=== PATIENT | female | born 1955 | race Caucasian/White ===

== ENCOUNTER 2019-11-01 18:35 | Emergency (ER) | payer MEDICAID, SELFPAY ==
--- NOTE | 2019-11-01 18:39 | W.ED.GENAD ---
Discharge Plan Disposition Patient Disposition: HOME Condition: Stable Discharge Details Chief Complaint: FlankPain Clinical Impression: Fever, UTI (urinary tract infection), Cancer, Bladder mass, Anemia, Lung nodule Primary Care Provider: Mikayla,Local ED Provider: Nile Mena Home Meds and New Rx's Prescriptions: New cephalexin [Keflex] 500 mg capsule 500 mg PO QID 7 Days Qty: 28 RF: 0 No Action buprenorphine HCl 2 mg Tablet, Sublingual 3 mg SUBLINGUAL DAILY RF: 0 Discharge Instructions Instructions: Urinary Tract Infection in Women (ED), Bladder Cancer (DC) Additional Instructions: At this time there is a notable mass on your bladder, which is likely the source of your bleeding, infection, and weight loss. There is significant concern that this is a malignancy. Per your request and wishes we will be discharging you home, please take the antibiotic as directed, 500 mg of Keflex(which is 1 pill) every 6 hours. Do this for the completion of the prescription. Please contact Dr. Vazquez's office for follow-up this week for this bladder cancer. Please drink plenty of fluids, take Tylenol and Motrin as needed for fever. If you notice any worsening of your symptoms, or any new symptoms such as vomiting, diarrhea, fever, chills, shortness of breath, chest pain, numbness, weakness, or fainting , please return immediately to the emergency department for reevaluation. Please follow up with your primary care provider as soon as possible for reassessment and reevaluation. As always, it was a pleasure participating in your medical care today. Referrals: Jayce Vazquez MD [ [facility] STAFF PHYSICIAN] - Discharge Data Discharge Date/Time-TO BE ENTERED AT DEPARTURE: 11/01/19 22:40 Medical Decision Making <Leyla Winters DO - Last Filed: 11/02/19 08:59> 1850 --64-year-old female with history of frequent UTI, tobacco smoking, multiple abdominal surgeries complicated with SBO and prior colostomy with reversal 10 years ago presents with fever, UTI symptoms and left flank and left lower quadrant abdominal pain for the past 3 weeks. Report of recent 10 pound weight loss. She appears cachectic. Heart rate tachycardic. She is moderately anxious. She is afebrile. She has left lower quadrant suprapubic tenderness. Suspect pyelonephritis but also need to consider possible neoplasm considering weight loss and cachexia. Will place an IV, bolus IV fluids, IV Tylenol, screening labs, urinalysis and CT abdomen and pelvis. 1944 --labs reviewed. Hemoglobin 8.5. Urinalysis notes UTI. Will give a dose of IV Rocephin. 1999 --case endorsed to Dr. Mena to follow-up on labs and imaging. Medical Records Medical records reviewed: Yes I reviewed the patient's medical records. <Nile Mena, DO - Last Filed: 11/01/19 22:57> The case was signed out to me by my colleague Dr. Leyla Winters. Please refer to her documentation, physical exam, HPI and assessment and plan. Patient was signed out pending CT scans and reassessment. Laboratory work-up demonstrates evidence of mild anemia, which appears to be more acute, initially the patient denied any blood anywhere, she now admits that she has been seeing some blood in her urine occasionally once every third day. No white count, however the patient does have notable evidence of pyelonephritis. Renal function stable. Troponin normal, CT scan results have returned and demonstrates evidence of a 7 mm nodule in the lungs, there is also a notable soft tissue mass in the left anterior urinary bladder with moderate left hydronephrosis with mural thickening of the left renal pelvis and ureter could be related to neoplasm. I suspect that the suspected bladder cancer is causing notable retention subsequent infection. Patient was given a gram of Rocephin here in the ED by Dr. Winters. I discussed the imaging, infection, and clinical disposition with Dr. Vazquez, he agrees on the need for prompt follow-up. I did discuss all these findings with the patient, we had a long and thorough discussion together, patient understands the severity of her current illness. She states that she is feeling much better though at this time after the antibiotics and fluids. I did discuss with the patient admission/observation to the hospital , and at this time through notable discussion, weighing the risks and benefits, utilizing a shared decision making process, and with a very clear discussion on the benefit of admission and the risks associated with discharge including the unlikely but potential worst case scenario of or lifelong disability the patient has refused admission and would like to go home. She states that she does need time to think through this and she feels much better. Patient is of a appropriate age to make decisions. The patient is of sound mind, appears clinically sober, and has capacity to make decisions by my clinical exam. Respecting the patient's wishes, they will be discharged home. I did discuss less ideal options, including return later for admission the patient has made it clear that she will be going home and staying home for the current time but she does assure me that she will return immediately if she has any worsening of her symptoms. We will give a bottle of Keflex here, and a prescription for home use. We will place urology referral for prompt follow-up this week. I have extensively reviewed the treatment plan and discharge instructions with the patient. I have addressed all patient concerns at this time. The patient was made aware of what symptoms to monitor for that would warrant a return to the emergency department. Discussed the plan with the patient, they demonstrate verbal understanding and agreement with our assessment and plan at this time. We will also place a referral for outpatient primary care provider referral. IMPRESSION: 1. No acute finding. 2. 7 mm nodule along the right anterior minor fissure. As per Fleischner Society 2017 guidelines for follow-up and management of pulmonary nodules: For patients at low risk (minimal or absent history of smoking and of other known risk factors), recommend CT at 6-12 months, then consider CT at 18- 24 months. For patient at high risk (history of smoking or of other known risk factors), recommend CT at 6-12 months, then CT at 18-24 months. IMPRESSION: 1. Soft tissue mass of the left anterior urinary bladder with moderate left hydronephrosis and with mural thickening of the left renal pelvis and ureter that could also be related to neoplasm. 2. Mild fecal retention. 3. Borderline prominence of the biliary ducts, correlate with patient labs to exclude obstruction with MRCP or ERCP for further evaluation as clinically indicated. Thank you for allowing us to participate in the care of your patient. Dictated and Authenticated by: Adonis Norwood MD 11/01/2019 9:56 PM Eastern Time ([place] & [place]) HPI <Leyla Winters DO - Last Filed: 11/02/19 08:59> General Mode of arrival: ambulatory. Date/Time Provider Initiated Documentation: 11/01/19 18:37. Limitations to Documentation: no limitations. Information obtained by: patient. HPI Narrative: Patient is a 64-year-old female with a history of UTI, hysterectomy, ectopic and bladder surgery complicated with scar tissue resulting in bowel obstruction 10 years ago presents with fever, urinary frequency, dysuria, hematuria, and left flank and left lower quadrant abdominal pain for the past 3 weeks. T-max 101 2 days ago. She also admits to decreased appetite over the past 2 days. She denies any chest pain, shortness of breath, vomiting, diarrhea. She does admit to an approximate 10 pound weight loss over the past few weeks. She denies any recent travel, known sick contacts or h/o COVID testing. Related Data Home Medications Medication Instructions Recorded Confirmed buprenorphine HCl 3 mg SUBLINGUAL DAILY 11/01/19 11/01/19 cephalexin [Keflex] 500 mg PO QID 7 Days #28 cap 11/01/19 Previous Rx's Medication Instructions Recorded cephalexin [Keflex] 500 mg PO QID 7 Days #28 cap 11/01/19 Allergies Allergy/AdvReac Type Severity Reaction Status Date / Time No Known Allergies Allergy Unverified 11/01/19 18:49 Review of Systems <Leyla Winters DO - Last Filed: 11/02/19 08:59> All systems reviewed & are unremarkable except as noted in HPI and below Constitutional Constitutional: Reports as per HPI, Denies chills and Reports fever(s) Eyes Eyes: Denies blurry vision ENT Ears, Nose, Mouth, and Throat: Denies dizziness, Denies sore throat and Denies throat swelling Cardiovascular Cardiovascular: Denies chest pain and Denies dyspnea Respiratory Respiratory: Denies cough and Denies dyspnea Gastrointestinal Gastrointestinal: Reports abdominal pain, Denies diarrhea and Denies vomiting Genitourinary Genitourinary: Denies hematuria and Denies dysuria Musculoskeletal Musculoskeletal: Denies back pain and Denies numbness Integumentary/Breasts Skin/Breast: Denies lesions and Denies rash Neurologic Neurologic: Denies dizziness, Denies localized weakness and Denies numbness Allergic/Immunologic Allergic/Immunologic: Denies throat swelling PFSH <Leyla Winters DO - Last Filed: 11/02/19 08:59> Medical History (Updated 11/01/19 @ 22:56 by Nile Mena DO) Frequent UTI (Acute) Surgical History (Updated 11/01/19 @ 19:37 by Leyla Winters DO) History of bladder surgery (Acute) History of hysterectomy (Chronic) Social History Smoking/Tobacco Use Status: Current every day Tobacco Type: cigarettes Years smoked: 10 Alcohol Intake: never Substance use type: does not use Do you feel safe at home: Yes Do you feel safe in your relationship?: Yes Exam <Leyla Winters DO - Last Filed: 11/02/19 08:59> Const General: cooperative, anxious and ill appearing chronically Nutritional Appearance: cachectic HENMT Head: normal to inspection Face and sinus: normal facial exam Eyes General: appearance normal, both eyes and all related structures EOM: EOM intact bilaterally Neck Neck: normal visual inspection and No submandibular swelling Lymphatic: no lymphadenopathy noted Chest Chest: normal inspection of the chest and no tenderness Resp Effort & Inspection: normal respiratory effort and able to speak in complete sentences Auscultation: clear to auscultation bilaterally Cardio Rate: regular rate Rhythm: regular rhythm GI Inspection: normal to inspection Palpation: soft, not firm, not rigid and tender in the LLQ and suprapubicly Auscultation: hypoactive bowel sounds Back/Spine/Pelvis Back: no CVA tenderness Skin General skin exam: no rashes or lesions noted and other (kaylene complexion) Neuro General: patient alert, patient awake and patient oriented x3 Cognition: normal cognition Speech: speech normal Motor: muscle tone normal throughout Sensory Exam: no sensory deficits noted Extrem General: normal to inspection, full ROM, capillary refill normal, no calf tenderness bilaterally and no edema Psych Appearance: grossly normal Mental Status: mental status grossly normal Speech and Movement: speech and movement normal Affect: normal affect Sign Out <Leyla Winters DO - Last Filed: 11/02/19 08:59> Sign Out Data: Sign Out Comment: follow up on labs and imaging and final disposition. Last updated by Leyla Winters DO at 11/01/19 19:49
[2019-11-01 18:44] VITALS: BP 168/68; PULSE 128; RESP 14; TEMP 36.7; O2SAT 96
[2019-11-01 19:31] LABS: Bilirubin Negative (Negative); Blood Moderate (Negative); Clarity Cloudy (Clear); Glucose Negative (Negative); Ketones Trace mg/dL (Negative); Leukocyte Esterase Large (Negative); Nitrite Positive (Negative); Specific Gravity 1.025 (1.005-1.025); pH 5.5 (5-8)
[2019-11-01 19:39] LABS: Bacteria Many HPF (Negative); C & S Indicated? Yes; Casts Negative LPF (Negative); Crystals Negative HPF (Negative); Epithelial Cells Negative HPF (Negative); Mucus Moderate (Negative); Other Cells Negative (Negative); RBC >50 HPF (0-2); WBC >50 HPF (0-5)
[2019-11-01 19:45] LABS: Abs Immature Grans 0.02 k/cumm (0.0-0.09); Absolute Basophil Count 0.02 k/cumm (0.0-0.2); Absolute Lymphocyte Count 0.91 k/cumm (1.2-3.4); Absolute Neutrophil Count 6.34 k/cumm (1.2-6.7); Basophils % 0.2; HCT 26.9 % (36.0-46.0); HGB 8.5 g/dL (12.0-15.5); Immature Grans % 0.2 %; Lymphocytes % 11.1; Mean Corp. HGB Concentration 31.6 g/dL (32.0-36.0); Mean Corpuscular Hemoglobin 27.5 pg (27.0-33.0); Mean Corpuscular Volume 87.1 fL (80-95); Mean Platelet Volume 8.4 fL (8.0-11.0); Neutrophils % 77.5; Platelet Count 412 x1000/uL (130-400); RBC 3.09 m/cumm (4.00-5.20); RBC Distribution Width 13.2 % (11.7-14.6); White Blood Cell Count 8.19 k/cumm (4.4-10.8)
--- NOTE | 2019-11-01 19:45 | DI.CT_ITS ---
EXAM: CT CHEST/ABD/PEL W CLINICAL HISTORY: LLQ abd/suprapubic pain COMPARISON: No exams were available for comparison FINDINGS: CT examination of the chest, abdomen and pelvis was performed with a bolus infusion of 85 cc of Omnip aque 350. There is severe pulmonary emphysema, most prominent involving the upper lobes. There is no evidence of pulmonary embolic disease. Thoracic aorta is unremarkable with no dissection or aneurysm. No med iastinal or hilar mass or adenopathy. Tracheobronchial tree is unremarkable. No acute consolidation . No pleural effusion or pneumothorax. Incidental fissural nodule noted, no follow necessary. The liver and spleen are grossly unremarkable in appearance. There is are multiple calcified gallsto steve. No significant biliary dilatation. Unremarkable appearance of pancreas. Abdominal aorta is of normal diameter and no major vascular abnormality is seen. No significant abdominal wall hernia see n. Adrenals are unremarkable bilaterally. Right kidney appears normal with no renal mass, hydronephrosi s, or nephrolithiasis. There is marked left hydronephrosis and hydroureter to the level of the ureterovesical junction. The re is a lobulated enhancing bladder wall mass predominantly on the left obstructing the left ureteral orifice. Findings are highly suggestive of neoplasm. No gross pelvic adenopathy seen. No gross lit wel obstruction although there is significant constipation. IMPRESSION: Left urinary bladder soft tissue mass obstructing left ureteral orifice with severe left hydrouretero nephrosis. Highly suspicious for neoplasm.
[2019-11-01] MEDS: Normal Saline 500 ML IV (19:57)
[2019-11-01] MEDS: cefTRIAXone 1 GM/50 ML BAG IVPB (19:58)
[2019-11-01 20:01] LABS: ALT 17 U/L (14-59); AST 17 U/L (15-37); Alkaline Phosphatase 123 U/L (46-116); Anion Gap 11.5 mmol/L (3-11); BUN 12 mg/dL (7-18); Bilirubin, Total 0.5 mg/dL (0.2-1.0); CO2 26.5 mmol/L (21.0-32.0); CREATININE 0.76 mg/dL (0.55-1.02); Calcium 9.1 mg/dL (8.5-10.1); Chloride 97 mmol/L (98-107); Glucose 111 mg/dL (74-106); Potassium 3.7 mmol/L (3.5-5.1); Sodium 135 mmol/L (136-145); Total Protein 7.9 g/dL (6.4-8.2); Troponin I < 0.05 ng/Ml (<0.06)
[2019-11-01 20:34] LABS: Lactate 0.9 mmol/L (0.6-1.4)
[2019-11-01 20:42] VITALS: TEMP 37.3
[2019-11-01] MEDS: ACETAMINOPHEN 1,000 MG/100 ML BTL 400 MG IVPB (20:44)
[2019-11-01] MEDS: Normal Saline - Diluent 50 ML VIAL IV (21:27)
[2019-11-01] MEDS: Omnipaque 350 MG/ML 50 ML BTL PO (21:29)
[2019-11-01] MEDS: Omnipaque 350 MG/ML 100 ML BTL IJ (21:33)
[2019-11-01] MEDS: Breeza Beverage 473 ML BTL PO ×2 (21:38→21:39)
--- NOTE | 2019-11-01 21:56 | DI.VRAD_ITS ---
PROCEDURE INFORMATION: Exam: CT Chest With Contrast Exam date and time: 11/01/2019 7:56 PM Age: 64 years old Clinical indication: Other: Llq abd/suprapubic pain TECHNIQUE: Imaging protocol: Computed tomography of the chest with intravenous contrast. Radiation optimization: All CT scans at this facility use at least one of these dose optimization techniques: automated exposure control; mA and/or kV adjustment per patient size (includes targeted exams where dose is matched to clinical indication); or iterative reconstruction. Contrast material: OMNIPAQUE 350; Contrast volume: 85 ml; Contrast route: IV; Other contrast: Oral, Omnipaque 350, 50; COMPARISON: No relevant prior studies available. FINDINGS: Lungs: Moderate centrilobular pulmonary emphysema. No acute pulmonary infiltrate. 7 mm nodule along the right anterior minor fissure. Pleural space: Unremarkable. No pneumothorax. No pleural effusion. Heart: Unremarkable. No cardiomegaly. No pericardial effusion. Aorta: Unremarkable. No aortic aneurysm. Lymph nodes: Unremarkable. No enlarged lymph nodes. Bones/joints: Unremarkable. No acute fracture. Soft tissues: Unremarkable. IMPRESSION: 1. No acute finding. 2. 7 mm nodule along the right anterior minor fissure. As per Fleischner Society 2017 guidelines for follow-up and management of pulmonary nodules: For patients at low risk (minimal or absent history of smoking and of other known risk factors), recommend CT at 6-12 months, then consider CT at 18-24 months. For patient at high risk (history of smoking or of other known risk factors), recommend CT at 6-12 months, then CT at 18-24 months. PROCEDURE INFORMATION: Exam: CT Abdomen And Pelvis With Contrast Exam date and time: 11/01/2019 7:56 PM Age: 64 years old Clinical indication: Other: Llq abd/suprapubic pain TECHNIQUE: Imaging protocol: Computed tomography of the abdomen and pelvis with intravenous contrast. Radiation optimization: All CT scans at this facility use at least one of these dose optimization techniques: automated exposure control; mA and/or kV adjustment per patient size (includes targeted exams where dose is matched to clinical indication); or iterative reconstruction. Other contrast: Oral, Omnipaque 350, 50; COMPARISON: No relevant prior studies available. FINDINGS: Liver: Normal. No mass. Gallbladder and bile ducts: Cholelithiasis. Borderline prominence of the biliary ducts, correlate with patient labs to exclude obstruction with MRCP or ERCP for further evaluation as clinically indicated. Pancreas: Normal. No ductal dilation. Spleen: Splenomegaly, clinically correlate. Adrenals: Normal. No mass. Kidneys and ureters: Soft tissue mass of the left anterior urinary bladder with moderate left hydronephrosis and with mural thickening of the left renal pelvis and ureter that could also be related to neoplasm. Stomach and bowel: Mild fecal retention. Appendix: No evidence of appendicitis. Intraperitoneal space: Unremarkable. No free air. No significant fluid collection. Vasculature: Unremarkable. No abdominal aortic aneurysm. Lymph nodes: Unremarkable. No enlarged lymph nodes. Bladder: Unremarkable as visualized. Reproductive: Status post hysterectomy. Bones/joints: Unremarkable. No acute fracture. Soft tissues: Unremarkable. IMPRESSION: 1. Soft tissue mass of the left anterior urinary bladder with moderate left hydronephrosis and with mural thickening of the left renal pelvis and ureter that could also be related to neoplasm. 2. Mild fecal retention. 3. Borderline prominence of the biliary ducts, correlate with patient labs to exclude obstruction with MRCP or ERCP for further evaluation as clinically indicated. Dictated and Authenticated by: Adonis Norwood MD. Ordering:RAINE Mayer MD
--- NOTE | 2019-11-02 06:08 | NUR.NOTE ---
referral faxed to Urology for follow up care Nursing Note:
--- NOTE | 2019-11-03 11:06 | PDOC.ERCMACT ---
- If Service Date Differs Date of service: 11/03/19 Time of Service: 11:06 Care Management Activity Note At the request of ED provider, CM coordinates a referral to [facility], [facility], to assist patient in establishing care with a PCP. Referral to urology was faxed directly by the emergency department yesterday.
== END 2019-11-01 22:40 | disposition home or self-care (01) ==
PROVIDERS: Physician Assistant; Emergency Provider Student in an Organized Health Care Education/Training Program
DX: N39.0 Urinary tract infection, site not specified (principal); R50.9 Fever, unspecified; N32.9 Bladder disorder, unspecified; R91.1 Solitary pulmonary nodule; D64.9 Anemia, unspecified
CPT/HCPCS: 36415; 74177; 80053; 87040; 87077; 96361; 96365; 96375; 99285; 71260; 81003; 81015; 83605; 83735; 84484; 85025; 87086; 87186; 99284; J0131; J0696; J3490; Q9967

== ENCOUNTER 2019-11-04 13:58 | Emergency (ER) | payer MEDICAID, SELFPAY ==
[2019-11-04] VITALS (15 sets, daily range): BP systolic 105–134; BP diastolic 53–84; PULSE 93–140; RESP 14–25; TEMP 36.8–39.4; O2SAT 80–99
--- NOTE | 2019-11-04 14:00 | DI.CT_ITS ---
EXAM: CT ABDOMEN PELVIS W CLINICAL HISTORY: flank pain, known mass, severe left flank pain. TECHNIQUE: Imaging Protocol: Axial computed tomography images with coronal and sagittal reformatted images were created and reviewed CONTRAST MATERIAL: Intravenous: Omnipaque 350 Contrast volume:structured data in ml Oral: no oral contrast was administered on today's examination. There is some residual contrast in the colon from the prior exam. COMPARISON: CT CHEST/ABD/PEL W from 11/01/2019 FINDINGS: ABDOMEN: The exam is somewhat limited by lack of intra-abdominal fat. Lung Bases: Normal where visualized. Liver: Normal density. No measurable mass. Gallbladder and biliary tract: Stones are again noted in the gallbladder. No biliary dilation. Pancreas: Normal density, no abnormal calcifications or inflammatory process. Spleen: Normal. Kidneys: Right kidney normal size, contour and axis. the left kidney again shows severe hydronephros is which may be slightly worse when compared with the previous exam. The left kidney is enlarged. Th ere is no evidence abscess or abnormal gas formation. The ureter is dilated to the level of the infi ltrative mass at the left side and floor of the bladder. The mass appears unchanged. Adrenal glands: No masses seen. Abdominal Aorta: Abdominal portion non-dilated. Mild calcification. PELVIS: Bladder: Symmetric distention, no gross wall thickening. Bowel: There is a large quantity of stool seen throughout the colon. No obstruction or bowel wall th ickening. Peritoneal cavity: No ascites, collection or mesenteric inflammatory response. Bones: Mild degenerative changes. No lytic or blastic lesions. Reproductive organs: The uterus is not seen, presumably is status post hysterectomy. The ovaries are not visible.. Lymph nodes: No enlarged lymph nodes are visible. Impression: 1. Infiltrative appearing mass at the inferior and left aspect of the bladder causing severe left hy dronephrosis. The hydronephrosis may be slightly increased. There is no evidence of an abscess or p erinephric collection. 2. Large quantity of fecal material, consistent with constipation. DATA REPOSITORY: All CT scans at this facility are submitted to the National Radiology Data Registry (NRDR) Dose Index Registry (DIR) with the [employer] ([employer]). RADIATION OPTIMIZATION: All CT scans at this facility use at least one of these dose optimization te chniques: automated exposure control; mA and/or kV adjustment per patient size (includes targeted exa ms where dose is matched to clinical indication); or iterative reconstruction.
--- NOTE | 2019-11-04 14:13 | W.ED.GENAD ---
Discharge Plan Disposition Patient Disposition: AGAINST MEDICAL ADVICE Condition: Critical Discharge Details Chief Complaint: Urinary Clinical Impression: Sepsis, Acute pyelonephritis, Left against medical advice, Bladder cancer Primary Care Provider: Elayne Elaine ED Provider: Nile Mena Home Meds and New Rx's Prescriptions: No Action buprenorphine HCl 2 mg Tablet, Sublingual 3 mg SUBLINGUAL DAILY RF: 0 cephalexin [Keflex] 500 mg capsule 500 mg PO QID 7 Days Qty: 28 RF: 0 Discharge Instructions Instructions: Kidney Infection (ED) Additional Instructions: It is not my recommendation at all that you go home. It is absolutely imperative that you return immediately here or to [facility] to get your definitive medical treatment. Your current urinary infection in conjunction with your bladder cancer has the high likelihood for being completely fatal in the short-term, and you need immediate and emergent medical care. I am at your disposal at any time for discussion about this, please do not hesitate to contact me at all in regards to this. It is my recommendation that you immediately travel to [facility] for this care. If you have any change in your opinion whatsoever do not hesitate to return here and we we can help facilitate your care and transfer. Of note you can always contact us in regards to your dog. However if you do not do this you can also contact Ashley Henry at [phone] Medical Decision Making This is a 64-year-old female with recent visit 3 days ago where she was diagnosed with notable bladder cancer and associated pyelonephritis. At that time the inpatient admission was recommended, but patient refused admission, she understood and accepted the risks of this, and was given Keflex for home use. She did follow-up with Dr. Vazquez today, and continues to demonstrate no improvement of her symptomatology. Her pain is gotten slightly worse. In the office of urology today she was noted to continue to be febrile, have notable chills, and continued left leg pain. She was brought to the ER for further evaluation. This time the patient does agree to admission. She states that the urinary bleeding has stopped, she feels that her infection is better however clinically this is not the case. She denies any vomiting or diarrhea. She does state that she has been taking the Keflex as directed. She denies any other new complaints. No other modifying factors. Of note Dr. Vazquez's clinic does feel that the patient would benefit from stenting and surgery, and would like to place her on the OR list for tomorrow. Physical exam demonstrates notable left flank tenderness, the patient is tachycardic, febrile, certainly demonstrates signs and symptoms clinically consistent with urosepsis which is clearly white admission was recommended last time. We have had a long [id number] conversation with the patient today, and she now does agree to admission here. We will start with 2 g of cefepime, fluids, with her worsening pain and slight atypical flank swelling, we will get a repeat CT scan, suspect continued and worsening obstruction. Also of note the patient does have her dog with her, this was 1 of the main objects of impedance trying to get her admitted last time. We have contacted our mattress spring encaser, and also made multiple calls in the local community in an attempt to find a way to hold the dog over in the meantime so that t the patient can receive proper care management here on an inpatient basis. 5:11 PM Patient's laboratory work-up demonstrates increased white count, left shift, renal function stable. Urinalysis continues to demonstrate notable urinary tract infection. CT scan demonstrates worsening hydronephrosis no evidence of abscess. Continue note ability of bladder cancer. The patient does have blood cultures from her last visit which were negative for growth, urine cultures had gram-negative rods was positive for E. coli however there was a problem with the initial sensitivities, and a new batch needed to be started. We have contacted lab and none of the sensitivity results are back yet. The patient is currently received cefepime and vancomycin. We did contact her urologist Dr. Vazquez here, he is concerned that with the notable mass she would need a nephrostomy tube and he did not feel that this was appropriate here. We did contact [facility] urology and I spoke with the urologist , discussed the case with him, he agreed with the need for transfer. Unfortunately shortly after this the patient made it abundantly and exquisitely clear that although she does agree with going to [facility] she does not want to go to [facility] now. She will be going home, seeing her only living family member, discussing the scenario with him, and then she states that she will promptly travel to [facility]. I had an extended conversation with the patient has scant bleeding that she abide by the current transfer to [facility] for more emergent management and continued IV antibiotic therapy. And she made it extremely clear that this would not be happening. We offered multiple various resources to help facilitate all of the other things that she needed including phone calls, help from the inspecting and testing lead hand, and myself offered multiple times to talk with her family member. These were not wanted. The patient will be leaving against my medical advice. Patient is of a appropriate age to make decisions. The patient is of sound mind, appears clinically sober, and has capacity to make decisions by my clinical exam. We have provided options for treatment and discussed the risks and benefits of these options and refusing these options, including and disability specific to the patient's pathology. Patient is able to discuss the risks and benefits and alternatives of treatment and refusing treatment. We have also discussed multiple less ideal options, the patient is also refused this. We have tried to involve the patient's family or support group that was present here or by contacting them on the phone. The patient chooses to leave before evaluation and treatment is complete AGAINST MEDICAL ADVICE. Also of note I did contact the [facility] emergency department and spoke with the ER physician informing them of the patient's clinical scenario, and plan that was already formed. After speaking with the ER physician they will be on the look out for her. Of note for inclusion in the chart we have included the contact information for the person who is currently watching her dog for the patient if she does go to [facility] and then gets eventually discharged. The crewman armoured personnel carrier [phone] for your dog is Ashley Henry at [phone] Impression: 1. Infiltrative appearing mass at the inferior and left aspect of the bladder causing severe left hydronephrosis. The hydronephrosis may be slightly increased. There is no evidence of an abscess or perinephric collection. 2. Large quantity of fecal material, consistent with constipation. HPI General Date/Time Provider Initiated Documentation: 11/04/19 14:08. HPI Narrative: This is a 64-year-old female with recent visit 3 days ago where she was diagnosed with notable bladder cancer and associated pyelonephritis. At that time the inpatient admission was recommended, but patient refused admission, she understood and accepted the risks of this, and was given Keflex for home use. She did follow-up with Dr. Vazquez today, and continues to demonstrate no improvement of her symptomatology. Her pain is gotten slightly worse. In the office of urology today she was noted to continue to be febrile, have notable chills, and continued left leg pain. She was brought to the ER for further evaluation. This time the patient does agree to admission. She states that the urinary bleeding has stopped, she feels that her infection is better however clinically this is not the case. She denies any vomiting or diarrhea. She does state that she has been taking the Keflex as directed. She denies any other new complaints. No other modifying factors. Of note Dr. Vazquez's clinic does feel that the patient would benefit from stenting and surgery, and would like to place her on the OR list for tomorrow. Related Data Home Medications Medication Instructions Recorded Confirmed buprenorphine HCl 3 mg SUBLINGUAL DAILY 11/01/19 11/04/19 cephalexin [Keflex] 500 mg PO QID 7 Days #28 cap 11/01/19 11/04/19 Previous Rx's Medication Instructions Recorded cephalexin [Keflex] 500 mg PO QID 7 Days #28 cap 11/01/19 Allergies Allergy/AdvReac Type Severity Reaction Status Date / Time naloxone Allergy Mild mouth and Unverified 11/04/19 14:15 throat blisters/couldn't talk General Stated Complaint: Urinary PHOENIX: 3 Review of Systems All systems reviewed & are unremarkable except as noted in HPI and below PFSH Medical History (Updated 11/04/19 @ 17:05 by Nile Mena DO) Frequent UTI (Acute) Surgical History (Updated 11/01/19 @ 19:37 by Leyla Winters DO) History of bladder surgery (Acute) History of hysterectomy (Chronic) Social History Smoking/Tobacco Use Status: Current every day Tobacco Type: cigarettes Years smoked: 10 Alcohol Intake: former Drug use: Never Substance use type: does not use Do you feel safe at home: Yes Do you feel safe in your relationship?: Yes Exam Narrative Exam Narrative: 1.Const: Well-nourished, Well-developed, appearing stated age 2.Eyes: PERRL, no conjunctival injection, and symmetrical lids. 3.ENT: Atraumatic external nose and ears. Moist MM. Neck: Symmetric, trachea midline, No thyromegaly. 4.CVS: +S1/S2, No murmurs or gallops. Peripheral pulses 2+ and equal in all extremities. Brisk capillary refill in all extremities. 5.RESP: Unlabored respiratory effort. Clear to auscultation bilaterally. No wheezes rales or rhonchi 6.GI: Soft, mild left-sided tenderness, primarily notable left flank tenderness and CVA tenderness. 7.MSK: Normocephalic/Atraumatic, Extremities w/o deformity or ttp No cyanosis or clubbing, Normal movement of all extremities 8.Skin: Warm, Dry. No rashes or lesions. 9.Neuro: foil stamp operator II-XII grossly intact. Sensation grossly intact, no focal neurologic deficits. 10.Psych: (AAO) x3. Appropriate mood and affect Course Vital Signs Vital signs: Vital Signs Temperature 39.4 C H 11/04/19 14:01 Pulse 140 H 11/04/19 14:01 Respiratory Rate 20 11/04/19 14:01 Blood Pressure 134/79 11/04/19 14:01 Pulse Oximetry 97 11/04/19 14:01 Temperature 39.4 C H 11/04/19 14:01 Temperature Source Oral 11/04/19 14:01 Pulse 140 H 11/04/19 14:01 Respiratory Rate 20 11/04/19 14:01 Blood Pressure 134/79 11/04/19 14:01 Blood Pressure Position Sitting 11/04/19 14:01 Pulse Oximetry 97 11/04/19 14:01 Oxygen Delivery Method Room Air 11/04/19 14:01 Oxygen Flow Rate 0 11/04/19 14:01 Pain Level 6 11/04/19 14:01 Comment 11/04/19 14:01 Lab/Test Results Lab/Test Results: 11/04/19 14:09 Blood Blood Culture - Pending 11/04/19 14:09 Blood Blood Culture - Pending
[2019-11-04] MEDS: Normal Saline 1,000 ML 1000 ML IV (14:30)
--- NOTE | 2019-11-04 14:48 | CMACTNOTE_ITS ---
- If Service Date Differs Date of service: 11/04/19 Time of Service: 14:48 Care Management Activity Note Glo presents in the ED with increased pain and fever. She reportedly received a new diagnosis a few days ago of bladder cancer and associated pyelonephritis. ED provider contacts to request assistance in finding someone to care for Glo's dog, as she is requiring admission to the hospital at this time and has no one to care for her dog. contacts Ashley Tien ([phone]) from the [facility] and Ashley agrees to board the dog until Glo is well enough to return home and care for her pet. The boarding fee is $10.00 per day, but Ashley reports, given the circumstances, she will work something out with Glo once she is discharged from the hospital.
[2019-11-04] MEDS: ACETAMINOPHEN 1,000 MG/100 ML BTL 400 MG IVPB (14:50)
[2019-11-04 14:55] LABS: Abs Immature Grans 0.03 k/cumm (0.0-0.09); Absolute Basophil Count 0.01 k/cumm (0.0-0.2); Absolute Lymphocyte Count 0.29 k/cumm (1.2-3.4); Absolute Monocyte Count 0.22 k/cumm (0.11-0.7); Basophils % 0.1; HCT 24.8 % (36.0-46.0); HGB 7.9 g/dL (12.0-15.5); Immature Grans % 0.3 %; Lymphocytes % 2.7; Mean Corp. HGB Concentration 31.9 g/dL (32.0-36.0); Mean Corpuscular Hemoglobin 27.5 pg (27.0-33.0); Mean Corpuscular Volume 86.4 fL (80-95); Mean Platelet Volume 8.3 fL (8.0-11.0); Neutrophils % 94.9; Platelet Count 471 x1000/uL (130-400); RBC 2.87 m/cumm (4.00-5.20); RBC Distribution Width 13.3 % (11.7-14.6); White Blood Cell Count 10.85 k/cumm (4.4-10.8)
[2019-11-04] MEDS: CEFEPIME 2 GM in Normal Saline 100 ML IVPB (15:08)
[2019-11-04 15:10] LABS: ALT 22 U/L (14-59); AST 21 U/L (15-37); Albumin 2.7 g/dL (3.4-5.0); Alkaline Phosphatase 212 U/L (46-116); Anion Gap 10.2 mmol/L (3-11); BUN 11 mg/dL (7-18); Bilirubin, Total 0.5 mg/dL (0.2-1.0); CO2 25.8 mmol/L (21.0-32.0); CREATININE 0.82 mg/dL (0.55-1.02); Calcium 8.9 mg/dL (8.5-10.1); Chloride 96 mmol/L (98-107); Glucose 105 mg/dL (74-106); INR 1.2 (0.9-1.1); PTT Activated 30.9 sec (21.0-31.4); Potassium 3.8 mmol/L (3.5-5.1); Prothrombin Time 11.6 sec (9.3-11.0); Sodium 132 mmol/L (136-145); Total Protein 7.5 g/dL (6.4-8.2)
--- NOTE | 2019-11-04 15:16 | NUR.NOTE ---
Nursing Note: Pt had expressed extensive concern about the care and welfare of her dog, Ian (Tomasz). Pt left AMA r/t these concerns from her last ED visit. Numerous phone calls were made to veterinarians in the [facility] area- as pt states her vet is Dr. Sanders from [place]. The only vet office with a Dr. Sanders is [facility] in [place], [place]- currently closed r/t COVID19 concerns. [facility] in [place], [place] (emergency vet for the area) called and Ian had never been seen emergently, therefore does not have current license rabies tags. Pt states dog is up to date and she has been trying to register him in [place], but my vet is closed so I can't get it done. Pt gave this nurse her keys to check on dog. Ashley- [facility] dog officer called by care management to pick up and delivery driver dog. This nurse and Sheriff Beltran met Ashley at pt's car ([place] plate on rear, handicapped sticker, parked in handicapped parking spot in front of hospital, between main entrance and business entrance) and transferred Ian's care to Ashley. Pt aware she may call [phone] at any time to check on Ian. She can call this number upon discharge and arrange for pick up and delivery driver in [place], at facility behind [facility]. [place] given to Sheriff Beltran, who has labeled the keys and will keep the keys in the security office until pt is discharged. Care management made aware. Car was locked after dog picked up. Ian's pillow and blue large plush toy/pillow sent with Ian and Ashley to attempt to provide comfort from home.
[2019-11-04 15:20] LABS: Bilirubin Negative (Negative); Blood Moderate (Negative); Clarity Clear (Clear); Glucose Negative (Negative); Ketones Negative (Negative); Leukocyte Esterase Large (Negative); Nitrite Negative (Negative); Specific Gravity 1.015 (1.005-1.025); pH 6.5 (5-8)
[2019-11-04 15:35] LABS: WBC >50 HPF (0-5)
[2019-11-04 15:38] LABS: Bacteria Rare HPF (Negative); Casts Negative LPF (Negative); Crystals Negative HPF (Negative); Epithelial Cells Rare HPF (Negative); Mucus Negative (Negative); Other Cells Negative (Negative)
[2019-11-04 15:39] LABS: C & S Indicated? C&S Done As Ordered
[2019-11-04] MEDS: Omnipaque 350 MG/ML 100 ML BTL IJ (15:39)
[2019-11-05 08:21] LABS: COVID-19 RT-PCR UVMMC Result Negative (Negative)
== END 2019-11-04 17:39 | disposition left against medical advice (07) ==
PROVIDERS: Emergency Provider Student in an Organized Health Care Education/Training Program; PCP Family Medicine
DX: A41.89 Other specified sepsis (principal); N10 Acute pyelonephritis; N32.9 Bladder disorder, unspecified; Z53.29 Procedure and treatment not carried out because of patient's decision for other reasons
CPT/HCPCS: 80053; 87040; 87449; 96361; 96365; 96366; 96367; 96375; 99285; U0003; 74177; 81003; 81015; 83605; 85025; 85610; 85730; 87086; J0131; J3490

== ENCOUNTER 2019-11-25 01:57 | Outpatient (CLI) | payer MEDICAID, SELFPAY ==
--- NOTE | 2019-11-25 | DI.NM_ITS ---
EXAM: NM BONE SCAN WHOLE BODY GRP CLINICAL HISTORY: URINARY BLADDER CA,C67.9, ELEVATED ALK PHOS, ? METS. COMPARISON: No exams were available for comparison EXAMINATION: Whole body bone scan was performed following intravenous infusion 24.0 millicuries of t echnetium 99 labeled methylene diphosphonate. There is unremarkable renal and urinary bladder uptake. There is no focal area of increased skeletal uptake. FINDINGS: Negative bone scan, no evidence of bony metastatic disease. IMPRESSION:
--- NOTE | 2019-11-25 12:01 | DI.CT_ITS ---
EXAM: CT CHEST W CLINICAL HISTORY: BLADDER TUMOR, D49.4, BLADDER CA, C67.9, ? METS TECHNIQUE: COMPARISON: No exams were available for comparison FINDINGS: CT examination of the chest was performed bolus infusion of 70 cc of Omnipaque 350. Images obtained through the upper abdomen show a percutaneous nephrostomy with the catheter in the left renal pelvis, no gross hydronephrosis involving visualized portions of the kidney. Visualized portion of right ki dney both adrenals are unremarkable. Visualized portions of liver and spleen appear as does pancreas . There is cholelithiasis, borderline size common bile duct, no gross obstructive lesion on limited scanning. There is severe central lobular pulmonary emphysema most prominent in the lung apices no mediastinal or hilar adenopathy. No pleural effusion or pleural-based mass. No axillary or supraclavicular ana paula opathy. No evidence of pulmonary embolic disease. No significant abnormality of the thoracic aorta apart fro m mild calcified atheromatous plaque. Tracheobronchial tree appears intact. IMPRESSION: severe pulmonary emphysema. No gross evidence of intrathoracic metastatic disease. Percutaneous left nephrostomy in position, no gross hydronephrosis. Cholelithiasis.
[2019-11-25] MEDS: Omnipaque 350 MG/ML 100 ML BTL 70 ML IJ (12:03)
[2019-11-25] MEDS: Normal Saline Flush 10 ML SYR IVP (12:04)
[2019-11-25] MEDS: Normal Saline - Diluent 50 ML VIAL IV (12:04)
== END 2019-11-25 02:17 ==
PROVIDERS: PCP Family Medicine; Visit Provider Urology
DX: C67.9 Malignant neoplasm of bladder, unspecified (principal); Z93.6 Other artificial openings of urinary tract status; K80.20 Calculus of gallbladder without cholecystitis without obstruction; J43.8 Other emphysema; R74.8 Abnormal levels of other serum enzymes; Z12.89 Encounter for screening for malignant neoplasm of other sites
CPT/HCPCS: 78306; 71260; J3490

== ENCOUNTER 2019-12-22 03:37 | Outpatient (CLI) | payer MEDICAID, SELFPAY ==
[2019-12-22 08:10] LABS: Abs Immature Grans 0.02 k/cumm (0.0-0.09); Absolute Basophil Count 0.03 k/cumm (0.0-0.2); Absolute Eosinophil Count 0.32 k/cumm (0.0-0.7); Absolute Lymphocyte Count 1.54 k/cumm (1.2-3.4); Absolute Monocyte Count 0.68 k/cumm (0.11-0.7); Basophils % 0.4; Eosinophils % 4.6; HCT 34.3 % (36.0-46.0); HGB 10.8 g/dL (12.0-15.5); Immature Grans % 0.3 %; Lymphocytes % 22.4; Mean Corp. HGB Concentration 31.5 g/dL (32.0-36.0); Mean Corpuscular Hemoglobin 27.6 pg (27.0-33.0); Mean Corpuscular Volume 87.7 fL (80-95); Mean Platelet Volume 8.6 fL (8.0-11.0); Monocytes % 9.9; Neutrophils % 62.4; Platelet Count 395 x1000/uL (130-400); RBC 3.91 m/cumm (4.00-5.20); RBC Distribution Width 15.4 % (11.7-14.6); White Blood Cell Count 6.89 k/cumm (4.4-10.8)
[2019-12-22 08:23] LABS: ALT 17 U/L (14-59); AST 27 U/L (15-37); Albumin 3.7 g/dL (3.4-5.0); Alkaline Phosphatase 106 U/L (46-116); Anion Gap 8.6 mmol/L (3-11); BUN 13 mg/dL (7-18); Bilirubin, Total 0.4 mg/dL (0.2-1.0); CO2 29.4 mmol/L (21.0-32.0); CREATININE 0.68 mg/dL (0.55-1.02); Calcium 9.3 mg/dL (8.5-10.1); Chloride 103 mmol/L (98-107); Glucose 108 mg/dL (74-106); Magnesium 2.1 mg/dL (1.8-2.4); Sodium 141 mmol/L (136-145); Total Protein 8.2 g/dL (6.4-8.2)
[2019-12-22 08:28] LABS: Potassium 4.6 mmol/L (3.5-5.1)
== END 2019-12-22 03:57 ==
PROVIDERS: PCP Family Medicine; Visit Provider Internal Medicine
DX: C67.9 Malignant neoplasm of bladder, unspecified (principal); C79.19 Secondary malignant neoplasm of other urinary organs
CPT/HCPCS: 36415; 80053; 83735; 85025

== ENCOUNTER 2019-12-29 00:39 | Outpatient (RCR) | payer MEDICAID, SELFPAY | END 2020-01-12 23:59 | disposition home or self-care (01) | LOC: INF 00:39 | PROVIDERS: PCP Family Medicine; Visit Provider Internal Medicine | DX: R69 Illness, unspecified (principal) ==

== ENCOUNTER 2020-01-21 16:02 | Outpatient (REF) | payer MEDICAID, SELFPAY | END 2020-01-21 16:22 | LOC: LBN 16:02 | PROVIDERS: PCP Family Medicine; Visit Provider Nurse Practitioner Gerontology | DX: N39.0 Urinary tract infection, site not specified (principal); C67.9 Malignant neoplasm of bladder, unspecified | CPT/HCPCS: 87086 ==

== ENCOUNTER 2020-03-24 03:04 | Outpatient (CLI) | payer MEDICAID, SELFPAY ==
[2020-03-24 12:27] LABS: HCT 27.4 % (36.0-46.0); HGB 8.9 g/dL (11.2-15.7); MCH 29.1 pg (27.0-33.0); MCHC 32.5 % (32.0-36.0); MCV 89.5 fL (80-95); MPV 9.5 fL (8.0-11.0); Platelet Count 317 10^3/uL (130-400); RBC 3.06 10^6/uL (3.93-5.22); RDW 13.4 % (11.7-14.6); RDW-SD 43.9 fL; WBC 7.41 10^3/uL (4.4-10.8)
[2020-03-24 12:50] LABS: ALT 13 U/L (14-59); AST 13 U/L (15-37); Albumin 3.4 g/dL (3.4-5.0); Alkaline Phosphatase 116 U/L (46-116); Anion Gap 10.1 mmol/L (3-11); BUN 10 mg/dL (7-18); Bilirubin, Total 0.5 mg/dL (0.2-1.0); CO2 26.9 mmol/L (21.0-32.0); CREATININE 0.67 mg/dL (0.55-1.02); Calcium 9.1 mg/dL (8.5-10.1); Chloride 101 mmol/L (98-107); Glucose 150 mg/dL (74-106); Potassium 3.7 mmol/L (3.5-5.1); Sodium 138 mmol/L (136-145)
== END 2020-03-24 03:24 ==
PROVIDERS: PCP Family Medicine; Visit Provider Family Medicine
DX: R31.9 Hematuria, unspecified (principal)
CPT/HCPCS: 36415; 80053; 85027

== ENCOUNTER 2020-03-27 16:24 | Emergency (ER) | payer MEDICAID, SELFPAY ==
[2020-03-27] VITALS (14 sets, daily range): BP systolic 112–137; BP diastolic 63–89; PULSE 88–98; RESP 20; TEMP 36.8; O2SAT 94–100
--- NOTE | 2020-03-27 16:30 | DI.CT_ITS ---
EXAM: CT ABDOMEN PELVIS WO CLINICAL HISTORY: renal cancer, nephrostomy tube,L flank pain COMPARISON: CT CT ABDOMEN PELVIS W from 11/04/2019 FINDINGS: CT examination of the abdomen and pelvis was performed without contrast administration. Images obtai shelby through the lung bases are unremarkable. The liver and spleen have a grossly unremarkable noncon trast appearance as does the pancreas. There is cholelithiasis. There is no evident biliary dilatation. Abdominal aorta is of normal diameter. No gross free intraperitoneal air. No gross free intraperitoneal fluid. No evidence of bowel obstru ction. Right kidney is unremarkable in appearance. No right ureteral calcification. No right hydronephrosi s. There is a left nephrostomy tube in position. There is marked left hydronephrosis and hydroureter to the level of the ureterovesical junction as noted on prior studies. Urinary bladder is nearly empty and contains gas. Previously noted left urinary bladder tumor is less easily seen on today's examin ation due to lack of contrast and lack of distention. However there appears to be gas at previously noted tumor site and perhaps infiltrating into the soft tissues anterior to the bladder, abscess and/ or fistula not excluded. IMPRESSION: Severe left hydronephrosis and hydroureter in a patient with indwelling left nephrostomy tube. Poss ible obstructive process, correlation with contrast-enhanced CT urogram or nuclear medicine scan leigha atkins. Intravesicle and extravesical gas, please correlate with surgical history regarding known prior bladd er carcinoma. Abscess or fistula not excluded. No evidence of bowel obstruction. RADIATION DOSE DELIVERED: Total DLP
[2020-03-27] MEDS: HYDROmorphone 2 MG/ML VIAL 1 MG IVP ×5 (16:43→18:36)
[2020-03-27 16:50] LABS: Abs Immature Grans 0.06 10^3/uL (0.0-0.06); Absolute Basophil Count 0.03 10^3/uL (0.0-0.2); Absolute Monocyte Count 0.69 10^3/uL (0.1-0.8); Basophils % 0.2; HCT 28.2 % (36.0-46.0); Immature Grans % 0.5; Lymphocytes % 4.5; MCH 28.7 pg (27.0-33.0); MCHC 31.9 % (32.0-36.0); MCV 89.8 fL (80-95); MPV 8.6 fL (8.0-11.0); Monocytes % 5.5; Neutrophils % 89.3; Nucleated RBC 0 %; Platelet Count 410 10^3/uL (130-400); RBC 3.14 10^6/uL (3.93-5.22); RDW-SD 42.8 fL; WBC 12.53 10^3/uL (4.4-10.8)
[2020-03-27 16:53] LABS: Absolute Lymphocyte Count 0.56 10^3/uL (1.2-3.4); Absolute Neutrophil Count 11.19 10^3/uL (1.2-6.7)
[2020-03-27 17:04] LABS: ALT 16 U/L (14-59); AST 16 U/L (15-37); Albumin 3.4 g/dL (3.4-5.0); Alkaline Phosphatase 132 U/L (46-116); Anion Gap 11.1 mmol/L (3-11); BUN 15 mg/dL (7-18); Bilirubin, Total 0.4 mg/dL (0.2-1.0); CO2 25.9 mmol/L (21.0-32.0); CREATININE 0.82 mg/dL (0.55-1.02); Calcium 9.4 mg/dL (8.5-10.1); Chloride 101 mmol/L (98-107); Glucose 137 mg/dL (74-106); Potassium 3.7 mmol/L (3.5-5.1); Sodium 138 mmol/L (136-145); Total Protein 7.7 g/dL (6.4-8.2)
--- NOTE | 2020-03-27 17:06 | W.ED.GENAD ---
Discharge Plan Disposition Patient Disposition: HOME Condition: Stable Discharge Details Clinical Impression: Malfunction of nephrostomy tube, Abdominal pain Primary Care Provider: Elayne Elaine ED Provider: Adonis Vinson Home Meds and New Rx's Prescriptions: Continued polyethylene glycol 3350 17 gram/dose powder 17 gm PO DAILY PRN (Reason: constipation) Qty: 238 RF: 5 nicotine 14 mg/24 hr patch 24 hour 1 patch TD DAILY RF: 0 clonazepam 0.5 mg tablet,disintegrating 0.5 mg PO Q8H PRN (Reason: anxiety) Qty: 150 RF: 4 hydromorphone 4 mg tablet 4 mg PO Q2H MDD 10 tab PRN (Reason: pain) Qty: 150 RF: 0 hyoscyamine sulfate 0.125 mg tablet 0.125 mg PO QID PRN (Reason: blader spasm) Qty: 90 RF: 0 Discharge Instructions Additional Instructions: Currently it appears that your nephrostomy tube has become unclogged. There were some atypical findings in your CAT scan that [facility] urology wants to follow-up with you immediately for. Please call them tomorrow morning to set up follow-up appointment. If you notice any worsening of your symptoms, or any new symptoms such as vomiting, diarrhea, fever, chills, shortness of breath, chest pain, numbness, weakness, or fainting , please return immediately to the emergency department for reevaluation. Please follow up with your primary care provider as soon as possible for reassessment and reevaluation. As always, it was a pleasure participating in your medical care today. 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 Patient states that she has had no output from her urostomy tube since 3 AM last night which is for acute hours ago. Because of the severe pain she has had associated nausea and vomiting. She has not been able to keep down any of her oral Dilaudid. Aside for the notable pain on the left-hand side she denies any other complaints at this time. Pain is described as severe, she has not able to give any other descriptors secondary to the pain. Of note she is normally taking 4 mg of hydromorphone every 2 hours. Demonstrates notable left-sided flank and abdominal pain. No discharge in the urostomy tube. Symptoms are concerning for potential outlet obstruction, or other abnormality. Physical exam is challenging secondary to patient's current pain status. Will get CT scan, manage her pain aggressively, monitor closely and reassess. 7:[address] scan results have returned per virtual radiology there is concern for fistulous track extending from the bladder, there is notable hydroureteronephrosis, however there is no clear evidence of obstruction of the percutaneous drain. However on reassessment the patient still has not drained anything of significance whatsoever from the drain. Suspect that it is clogged. We have paged [facility] for urology consult, no call back yet. Patient has required a notable amount of Dilaudid for pain control. I have discussed with her the need for potential transfer, she has verbalized some resistance stating that she needs someone to take care of her dog. This was a notable challenge on previous transfers, however at this time I have asked that she contact some of her local friends to see if they would be able to help watch her dog. Currently pending callback from [facility]. The case will be signed out to my colleague Dr. Adonis Vinson for continued management. 7:[address] Freeman of [facility] urology has contacted us. He does recommend flushing the urostomy tube, and if she has improvement of her symptoms and pain with this and success with flushing then he feels that she can follow-up outpatient. He did personally review the CT scan images, and does not think that the atypical finding/fistula require emergent management, but does recommend outpatient follow-up. We have flushed it here and it does appear to be draining somewhat. We will keep her for short observation. To evaluate for resolution of pain. If pain does resolve then per plan with [facility] urology she can go home with close follow-up. For continuity of care I will write up discharge instructions with this in mind, however I will have my colleague call to them if the plan changes or her management changes. FINDINGS: Tubes, catheters and devices: A left-sided percutaneous drain is seen, coiled within the renal pelvis. Lungs: Moderate emphysematous changes are seen within the lower lungs. Heart: The heart is normal in size. No pericardial effusion. Liver: The liver is normal in noncontrast appearance. Gallbladder and bile ducts: Multiple gallstones are seen. The common bile duct is slightly prominent measuring 7 mm. Mild intrahepatic ductal dilatation. This is similar when compared to the prior study. Pancreas: A mild stranding along the pancreatic tail. The remainder of the pancreas is normal appearance. Spleen: The spleen is mildly enlarged. Adrenals: The right adrenal gland is normal appearance. Mild stranding is seen surrounding the left adrenal gland which is thickened, adjacent to the left kidney. Kidneys and ureters: The right kidney is normal appearance. Significant stranding and mild fluid is seen within the left perirenal fat. This is more pronounced when compared to the prior study. Persistent severe left-sided hydroureteronephrosis is seen to the level of the UVJ. No obstructing calculus. Stomach and bowel: Unremarkable. No obstruction. No mucosal thickening. Appendix: No evidence of appendicitis. Intraperitoneal space: Unremarkable. No free air. No significant fluid collection. Vasculature: Mild atherosclerotic calcifications within the abdominal aorta without aneurysm. Lymph nodes: Unremarkable. No enlarged lymph nodes. Bladder: Significant, irregular wall thickening and air is seen within the lumen of the bladder. A possible fistulous track is seen extending off of the anterior bladder wall, extending to the ventral pelvic surface along the left side where nodular soft tissue thickening and mild fluid is seen. Reproductive: The uterus is surgically absent. Bones/joints: The osseous structures are demineralized. No evidence for acute compression fracture. No suspicious sclerotic or lytic lesions. Soft tissues: Mild anasarca. IMPRESSION: 1. Significant nodular thickening throughout the urinary bladder with intraluminal air. This is concordant with a bladder carcinoma possibly superimposed on an infectious process. Additionally, a probable fistulous track is seen extending off of the left anterior wall of the urinary bladder, which extends into the adjacent ventral pelvic soft tissues where irregular nodular soft tissue thickening is seen. Given the air, this represents either an infectious process, or could represent a tumoral fistula resulting in an enterovesical fistula. This can be further evaluated with delayed postcontrast imaging or an MRI of the pelvis. 2. Severe left-sided hydroureteronephrosis to the level of the UVJ. The percutaneous drain is properly placed within the renal pelvis without CT evidence for obstruction of the catheter. 3. Stranding is seen within the left adrenal gland along the pancreatic tail, likely reactive to the ongoing left renal process. 4. Large amount of stool throughout the colon, consistent with constipation. This is similar when compared to the prior study. 5. Cholelithiasis without evidence for cholecystitis. Thank you for allowing us to participate in the care of your patient. Dictated and Authenticated by: Adriana Abreu MD 03/27/2020 6:16 PM Eastern Time ([place] & [place]) <Adonis Vinson MD - Last Filed: 03/27/20 20:29> pt remains stable ambulating without assistance and steady gait without complaints requesting d/c, she understands importance of f/u and return precautions given HPI <Nile Mena DO - Last Filed: 03/28/20 09:27> General Date/Time Provider Initiated Documentation: 03/27/20 16:33. 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 Patient states that she has had no output from her urostomy tube since 3 AM last night which is for acute hours ago. Because of the severe pain she has had associated nausea and vomiting. She has not been able to keep down any of her oral Dilaudid. Aside for the notable pain on the left-hand side she denies any other complaints at this time. Pain is described as severe, she has not able to give any other descriptors secondary to the pain. Of note she is normally taking 4 mg of hydromorphone every 2 hours. Related Data Home Medications Medication Instructions Recorded Confirmed polyethylene glycol 3350 17 17 gm PO DAILY PRN #238 gm 11/17/19 03/23/20 gram/dose oral powder hyoscyamine sulfate 0.125 mg tablet 0.125 mg PO QID PRN #90 tab 02/11/20 03/23/20 clonazepam 0.5 mg disintegrating 0.5 mg PO Q8H PRN #150 tab 03/23/20 03/23/20 tablet hydromorphone 4 mg tablet 4 mg PO Q2H PRN #150 tab MDD 10 tab 03/23/20 03/23/20 nicotine 14 mg/24 hr daily 1 patch TD DAILY 03/23/20 03/23/20 transdermal patch Previous Rx's Medication Instructions Recorded polyethylene glycol 3350 17 17 gm PO DAILY PRN #238 gm 11/17/19 gram/dose oral powder hyoscyamine sulfate 0.125 mg tablet 0.125 mg PO QID PRN #90 tab 02/11/20 clonazepam 0.5 mg disintegrating 0.5 mg PO Q8H PRN #150 tab 03/23/20 tablet hydromorphone 4 mg tablet 4 mg PO Q2H PRN #150 tab MDD 10 tab 03/23/20 Allergies Allergy/AdvReac Type Severity Reaction Status Date / Time oxycodone [From Xtampza ER] Allergy Intermediate rash Verified 02/01/20 15:08 naloxone Allergy Mild mouth and Verified 02/01/20 15:08 throat blisters/couldn't talk cephalexin [From Keflex] Allergy Verified 02/01/20 15:08 ciprofloxacin [From Cipro] Allergy Verified 02/01/20 15:08 General Stated Complaint: Urinary [place]: 2 Review of Systems <Nile Mena DO - Last Filed: 03/28/20 09:27> All systems reviewed & are unremarkable except as noted in HPI and below PFSH <Nile Mena DO - Last Filed: 03/28/20 09:27> Medical History Bladder mass Buprenorphine dependence Cancer Frequent UTI Left against medical advice Surgical History History of bladder surgery History of hysterectomy Social History Smoking/Tobacco Use Status: Current every day Tobacco Type: cigarettes Years smoked: 10 Alcohol Intake: former Drug use: Never Substance use type: does not use Do you feel safe at home: Yes Do you feel safe in your relationship?: Yes Exam <Nile R DO Trina - Last Filed: 03/28/20 09:27> Narrative Exam Narrative: 1.Const: Thin, cachectic, elderly-appearing 2.Eyes: PERRL, no conjunctival injection, and symmetrical lids. 3.ENT: Atraumatic external nose and ears. Moist MM. Neck: Symmetric, trachea midline, No thyromegaly. 4.CVS: +S1/S2, No murmurs or gallops. Peripheral pulses 2+ and equal in all extremities. Brisk capillary refill in all extremities. 5.RESP: Unlabored respiratory effort. Clear to auscultation bilaterally. No wheezes rales or rhonchi 6.GI: Thin, scaphoid, notably tender in the left flank at the nephrostomy tube, no associated redness or drainage though. Bladder bag is empty. 7.MSK: Normocephalic/Atraumatic, Extremities w/o deformity or ttp No cyanosis or clubbing, Normal movement of all extremities 8.Skin: Warm, Dry. No rashes or lesions. 9.Neuro: social work administrator II-XII grossly intact. Sensation grossly intact, no focal neurologic deficits. 10.Psych: (AAO) x3. However notably distracted secondary to severe pain Course <Nile Mena DO - Last Filed: 03/28/20 09:27> Vital Signs Vital signs: Vital Signs Pulse Oximetry 94 L 03/27/20 16:42 Temperature 36.8 C 03/27/20 16:43 Temperature Source Skin 03/27/20 16:43 Pulse 97 H 03/27/20 16:46 Respiratory Rate 03/27/20 16:43 Respiratory Effort Non-Labored 03/27/20 16:49 Blood Pressure 113/63 03/27/20 16:46 Blood Pressure Mean 76 03/27/20 16:46 Pulse Oximetry 97 03/27/20 16:50 Oxygen Delivery Method Room Air 03/27/20 16:43 Oxygen Flow Rate 0 03/27/20 16:43 Pain Level 9 03/27/20 17:01 Lab/Test Results Lab/Test Results: Laboratory Tests Range/Units 03/27/20 16:40 WBC (4.4-10.8) 10^3/uL 12.53 H RBC (3.93-5.22) 10^6/uL 3.14 L Hgb (11.2-15.7) g/dL 9.0 L Hct (36.0-46.0) % 28.2 L MCV (80-95) fL 89.8 MCH (27.0-33.0) pg 28.7 MCHC (32.0-36.0) % 31.9 L RDW (11.7-14.6) % 13.0 Plt Count (130-400) 10^3/uL 410 H MPV (8.0-11.0) fL 8.6 Immature Gran % 0.5 Neutrophils % 89.3 Lymphocytes % 4.5 Monocytes % 5.5 Eosinophils % 0.0 Basophils % 0.2 Nucleated RBC % % 0 Absolute Neutrophils (1.2-6.7) 10^3/uL 11.19 H Absolute Lymphocytes (1.2-3.4) 10^3/uL 0.56 L Absolute Monocytes (0.1-0.8) 10^3/uL 0.69 Absolute Eosinophils (0.0-0.7) 10^3/uL 0.00 Absolute Basophils (0.0-0.2) 10^3/uL 0.03 POC- Test(urine) Negative Sign Out <Nile Mena DO - Last Filed: 03/28/20 09:27> Sign Out Data: Sign Out Comment: Bladder cancer, suspected obstructed nephrostomy tube, bladder fistula, pending [facility] urology consult Last updated by Nile Mena DO at 03/27/20 19:23
[2020-03-27] MEDS: Ondansetron 4 MG/2 ML VIAL IVP (17:13)
--- NOTE | 2020-03-27 18:16 | DI.VRAD_ITS ---
PROCEDURE INFORMATION: Exam: CT Abdomen And Pelvis Without Contrast Exam date and time: 03/27/2020 5:41 PM Age: 64 years old Clinical indication: Pain and condition or disease; Cancer; Kidney, left; Abdominal pain; Prior surgery; Additional info: PT unable to produce urine in nephostomy bag since 0300 today TECHNIQUE: Imaging protocol: Computed tomography of the abdomen and pelvis without contrast. COMPARISON: CT ABDOMEN PELVIS W 11/04/2019 3:27 PM FINDINGS: Tubes, catheters and devices: A left-sided percutaneous drain is seen, coiled within the renal pelvis. Lungs: Moderate emphysematous changes are seen within the lower lungs. Heart: The heart is normal in size. No pericardial effusion. Liver: The liver is normal in noncontrast appearance. Gallbladder and bile ducts: Multiple gallstones are seen. The common bile duct is slightly prominent measuring 7 mm. Mild intrahepatic ductal dilatation. This is similar when compared to the prior study. Pancreas: A mild stranding along the pancreatic tail. The remainder of the pancreas is normal appearance. Spleen: The spleen is mildly enlarged. Adrenals: The right adrenal gland is normal appearance. Mild stranding is seen surrounding the left adrenal gland which is thickened, adjacent to the left kidney. Kidneys and ureters: The right kidney is normal appearance. Significant stranding and mild fluid is seen within the left perirenal fat. This is more pronounced when compared to the prior study. Persistent severe left-sided hydroureteronephrosis is seen to the level of the UVJ. No obstructing calculus. Stomach and bowel: Unremarkable. No obstruction. No mucosal thickening. Appendix: No evidence of appendicitis. Intraperitoneal space: Unremarkable. No free air. No significant fluid collection. Vasculature: Mild atherosclerotic calcifications within the abdominal aorta without aneurysm. Lymph nodes: Unremarkable. No enlarged lymph nodes. Bladder: Significant, irregular wall thickening and air is seen within the lumen of the bladder. A possible fistulous track is seen extending off of the anterior bladder wall, extending to the ventral pelvic surface along the left side where nodular soft tissue thickening and mild fluid is seen. Reproductive: The uterus is surgically absent. Bones/joints: The osseous structures are demineralized. No evidence for acute compression fracture. No suspicious sclerotic or lytic lesions. Soft tissues: Mild anasarca. IMPRESSION: 1. Significant nodular thickening throughout the urinary bladder with intraluminal air. This is concordant with a bladder carcinoma possibly superimposed on an infectious process. Additionally, a probable fistulous track is seen extending off of the left anterior wall of the urinary bladder, which extends into the adjacent ventral pelvic soft tissues where irregular nodular soft tissue thickening is seen. Given the air, this represents either an infectious process, or could represent a tumoral fistula resulting in an enterovesical fistula. This can be further evaluated with delayed postcontrast imaging or an MRI of the pelvis. 2. Severe left-sided hydroureteronephrosis to the level of the UVJ. The percutaneous drain is properly placed within the renal pelvis without CT evidence for obstruction of the catheter. 3. Stranding is seen within the left adrenal gland along the pancreatic tail, likely reactive to the ongoing left renal process. 4. Large amount of stool throughout the colon, consistent with constipation. This is similar when compared to the prior study. 5. Cholelithiasis without evidence for cholecystitis. Dictated and Authenticated by: Adriana Abreu MD. Ordering:DONNIE Dowd MD
[2020-03-27] MEDS: ACETAMINOPHEN 1,000 MG/100 ML BTL 400 MG IVPB (18:36)
[2020-03-27] MEDS: HYDROmorphone 2 MG/ML VIAL 3 MG IVP (19:04)
--- NOTE | 2020-03-27 19:13 | NUR.NOTE ---
Nursing Note: Talking with and updating him. Patient wants to go home prior to going to [facility].
--- NOTE | 2020-03-27 19:57 | NUR.NOTE ---
Nursing Note: Patient has a left Nephrostomy tube that was placed approx. 3 weeks ago at [facility]. Patient states the tube stopped draining today. Dr. Mena spoke with [facility] and would like us to try to irrigate the tube with 5 ml SNS. Attempt to irrigate left Nephrostomy tube without success initially then tried agitating the tube. Repositioned patient to ensure no kinks in tube and continued mildly agitationg tube and was able to flush the tube easily with 5 ml sns with return of small amount of cloudy pale yellow urine. Dr. Mena notified. Patient states the pain is much better.
== END 2020-03-27 20:35 | disposition home or self-care (01) ==
PROVIDERS: Student in an Organized Health Care Education/Training Program; Emergency Provider Emergency Medicine; PCP Family Medicine
DX: T83.091A Other mechanical complication of indwelling urethral catheter, initial encounter (principal); R10.12 Left upper quadrant pain; R93.41 Abnormal radiologic findings on diagnostic imaging of renal pelvis, ureter, or bladder; Z93.6 Other artificial openings of urinary tract status; C67.9 Malignant neoplasm of bladder, unspecified
CPT/HCPCS: 36415; 80053; 96361; 96374; 96375; 99285; 74176; 81003; 85025; J0131; J2405

== ENCOUNTER 2020-03-29 14:07 | Outpatient (REF) | payer MEDICAID, SELFPAY ==
[2020-03-29 14:02] LABS: HCT 27.5 % (36.0-46.0); HGB 8.8 g/dL (11.2-15.7); MCH 28.3 pg (27.0-33.0); MCV 88.4 fL (80-95); MPV 9.9 fL (8.0-11.0); Platelet Count 407 10^3/uL (130-400); RBC 3.11 10^6/uL (3.93-5.22); RDW 13.2 % (11.7-14.6); RDW-SD 42.5 fL; WBC 10.63 10^3/uL (4.4-10.8)
== END 2020-03-29 14:27 ==
LOC: LBN 14:07
PROVIDERS: PCP Family Medicine; Visit Provider Nurse Practitioner Gerontology
DX: R50.9 Fever, unspecified (principal)
CPT/HCPCS: 85027

== ENCOUNTER 2020-05-09 21:35 | Emergency (ER) | payer MEDICAID, SELFPAY ==
[2020-05-09 21:44] VITALS: BP 125/103; PULSE 112; RESP 20; TEMP 37.3; O2SAT 97
--- NOTE | 2020-05-09 21:57 | ED.GENADUL_ITS ---
Discharge Plan Disposition Patient Disposition: HOME Condition: Improving Discharge Details Clinical Impression: Bladder cancer, Cancer related pain Primary Care Provider: Elayne Elaine ED Provider: George Martel Home Meds and New Rx's Prescriptions: New ondansetron HCl [Zofran] 4 mg tablet 4 mg PO QID PRN (Reason: nausea and vomiting) Qty: 10 RF: 0 Continued polyethylene glycol 3350 17 gram/dose powder 17 gm PO DAILY PRN (Reason: constipation) Qty: 238 RF: 5 clonazepam 0.5 mg tablet,disintegrating 0.5 mg PO Q8H PRN (Reason: anxiety) Qty: 150 RF: 4 hydromorphone 4 mg tablet 4 mg PO Q2H MDD 10 tab PRN (Reason: pain) Qty: 150 RF: 0 Proair Digihaler 90 mcg/actuation aero powdr breath act w/sensor 2 inh inhalation Q6H Qty: 1 RF: 5 dexamethasone [Decadron] 4 mg tablet 4 mg PO BID Qty: 40 RF: 0 morphine 100 mg Tablet Extended Release 100 mg PO Q8H PRNRF: 0 oxycodone 60 mg tablet,oral only,ext.rel.12 hr 60 mg PO Q8H MDD 3 PRNRF: 0 Medical Decision Making 64-year-old female with metastatic bladder cancer for which she has chosen to be on palliative care. She is been followed by her primary care physician Dr. Elaine as well as Clarice Liu from urology. She has had a recent increase in oral analgesia (hydromorphone 4 mg every 2 hours, morphine 100 mg q. 8, OxyContin 60 mg every 8) but now reports 24 hours of unable to take her medications due to pain, vomiting. She has not had a fever. Your urostomy tube has continued to drain. On exam she is afebrile with systolic blood pressure 125, borderline tachycardia, dehydrated in appearance. She states she does not want to be admitted to the hospital & has plans to be placed in hospice care. IV access established, screening labs obtained, patient given fluid bolus, antiemetic, Dilaudid. Labs reviewed: White count 17, hematocrit 28.9, platelets 492. Sodium 134, potassium 4.2, chloride 99, bicarb 26, BUN 26, creatinine 2.2. Calcium 9.8. AST 15, ALT 12. Following fluids and parenteral hydromorphone, the patient states she is significantly improved. She reiterates that she does not want to be admitted to the hospital and wishes to return to home. Lab Data Lab results reviewed: Yes I reviewed the patient's lab results. Labs: Laboratory Results - last 24 hr 05/09/20 05/09/20 22:15 22:15 WBC 17.56 H RBC 3.66 L Hgb 8.9 L Hct 28.9 L MCV 79.0 L MCH 24.3 L MCHC 30.8 L RDW 15.6 H Plt Count 492 H MPV 8.7 Immature Gran % 0.5 Neutrophils % 89.6 Lymphocytes % 3.2 Monocytes % 6.5 Eosinophils % 0.0 Basophils % 0.2 Nucleated RBC % 0 Absolute Neutrophils 15.73 H Absolute Lymphocytes 0.56 L Absolute Monocytes 1.14 H Absolute Eosinophils 0.00 Absolute Basophils 0.04 Sodium 134 L Potassium 4.2 Chloride 99 Carbon Dioxide 26.3 Anion Gap 8.7 BUN 26 H Creatinine 2.24 H Estimated GFR/1.73 m2 22.01 Glucose 102 Calcium 9.8 Total Bilirubin 0.5 AST 15 ALT 12 L Alkaline Phosphatase 146 H Total Protein 8.0 Albumin 3.4 HPI General Mode of arrival: ambulatory . Date/Time Provider Initiated Documentation: 05/09/20 21:39 . Limitations to Documentation: no limitations . Information obtained by: patient . History of Present Illness 64 year old F presents to the emergency department with the chief complaint of Breakthrough abdominal pain, hospice patient, described as severe, Quality is described as constant, and is localized to the abdomen and pelvis. Patient reports no radiation. Patient started experiencing this day(s) and it has been constant. No relieving factors improve symptom(s), No exacerbating factors reported . Patient notes loss of appetite, nausea/vomiting and weakness. Patient did receive the following treatments prior to arrival, none Related Data Home Medications Medication Instructions Recorded Confirmed polyethylene glycol 3350 17 17 gm PO DAILY PRN #238 gm 11/17/19 05/09/20 gram/dose oral powder clonazepam 0.5 mg disintegrating 0.5 mg PO Q8H PRN #150 tab 03/23/20 05/09/20 tablet albuterol sulfate 90 mcg/actuation 2 inh INHALATION Q6H #1 ea 03/31/20 05/09/20 breath activated powder inhaler,sensor hydromorphone 4 mg tablet 4 mg PO Q2H PRN #150 tab MDD 10 tab 04/19/20 05/09/20 dexamethasone 4 mg tablet 4 mg PO BID #40 tab 04/29/20 05/09/20 morphine 100 mg PO Q8H PRN 05/09/20 05/09/20 ondansetron HCl [Zofran] 4 mg PO QID PRN #10 tab 05/09/20 oxycodone 60 mg PO Q8H PRN MDD 3 05/09/20 05/09/20 Previous Rx's Medication Instructions Recorded polyethylene glycol 3350 17 17 gm PO DAILY PRN #238 gm 11/17/19 gram/dose oral powder clonazepam 0.5 mg disintegrating 0.5 mg PO Q8H PRN #150 tab 03/23/20 tablet albuterol sulfate 90 mcg/actuation 2 inh INHALATION Q6H #1 ea 03/31/20 breath activated powder inhaler,sensor hydromorphone 4 mg tablet 4 mg PO Q2H PRN #150 tab MDD 10 tab 04/19/20 dexamethasone 4 mg tablet 4 mg PO BID #40 tab 04/29/20 ondansetron HCl [Zofran] 4 mg PO QID PRN #10 tab 05/09/20 Allergies Allergy/AdvReac Type Severity Reaction Status Date / Time naloxone Allergy Mild mouth and Verified 04/27/20 12:21 throat blisters/couldn't talk cephalexin [From Keflex] Allergy Verified 04/27/20 12:21 ciprofloxacin [From Cipro] Allergy Verified 04/27/20 12:21 General Stated Complaint: Nausea/Vomit/Diar PHOENIX: 3 Review of Systems Narrative: Taking meds at home up until last night. No fever. Fatigue. Wants to be kept comfortable but wishes to avoid hospitalization. [facility] Medical History Bladder mass Buprenorphine dependence Cancer Frequent UTI Left against medical advice Surgical History History of bladder surgery History of hysterectomy Social History Smoking/Tobacco Use Status: Current every day Tobacco Type: cigarettes Years smoked: 10 Alcohol Intake: former Drug use: Never Substance use type: does not use Do you feel safe at home: Yes Do you feel safe in your relationship?: Yes Exam Narrative Exam Narrative: GEN: awake, alert, oriented x3, thin and emaciated HEAD: Normocephalic, atraumatic ENT: Mucous membranes dry, unremarkable facial structure. EYES: PERRL, EOMI NECK: Full ROM, no MAURY, no menigismus CHEST/RESP: Nontender, clear to auscultation bilateral, no wheeze/rhonchi/rales CARDIOVASCULAR: Regular and borderline tachycardic, no murmur, rub geronimo. 2+ Rad pulse bilateral ABDOMEN: Soft, lower abdomen mass, tender to touch. Left flank urostomy tube. +Bowel sounds EXT: Full ROM, no edema, no rash Neuro: Grossly normal neurologic exam, conversant, interactive. Psych: Speech fluent, thoughts congruent, affect flat Course Vital Signs Vital signs: Vital Signs Temperature 37.3 C 05/09/20 21:44 Pulse 112 H 05/09/20 21:44 Respiratory Rate 20 05/09/20 21:44 Blood Pressure 125/103 H 05/09/20 21:44 Pulse Oximetry 97 05/09/20 21:44 Temperature 37.3 C 05/09/20 21:44 Temperature Source Temporal Artery Scan 05/09/20 21:44 Pulse 112 H 05/09/20 21:44 Respiratory Rate 20 05/09/20 21:44 Blood Pressure 125/103 H 05/09/20 21:44 Blood Pressure Position Sitting 05/09/20 21:44 Pulse Oximetry 97 05/09/20 21:44 Oxygen Delivery Method Room Air 05/09/20 21:44 Oxygen Flow Rate 0 05/09/20 21:44 Pain Level 10 05/09/20 21:44
[2020-05-09] MEDS: HYDROmorphone 2 MG/ML VIAL IVP ×2 (22:09→22:39)
[2020-05-09] MEDS: Ondansetron 4 MG/2 ML VIAL IVP (22:09)
[2020-05-09 22:25] LABS: Abs Immature Grans 0.09 10^3/uL (0.0-0.06); Absolute Basophil Count 0.04 10^3/uL (0.0-0.2); Absolute Lymphocyte Count 0.56 10^3/uL (1.2-3.4); Absolute Monocyte Count 1.14 10^3/uL (0.1-0.8); Absolute Neutrophil Count 15.73 10^3/uL (1.2-6.7); Basophils % 0.2; HCT 28.9 % (36.0-46.0); Immature Grans % 0.5; Lymphocytes % 3.2; MCH 24.3 pg (27.0-33.0); MCHC 30.8 % (32.0-36.0); MPV 8.7 fL (8.0-11.0); Monocytes % 6.5; Neutrophils % 89.6; Nucleated RBC 0 %; Platelet Count 492 10^3/uL (130-400); RBC 3.66 10^6/uL (3.93-5.22); RDW 15.6 % (11.7-14.6); RDW-SD 45.1 fL; WBC 17.56 10^3/uL (4.4-10.8)
[2020-05-09 22:26] LABS: HGB 8.9 g/dL (11.2-15.7)
[2020-05-09 22:37] LABS: ALT 12 U/L (14-59); AST 15 U/L (15-37); Albumin 3.4 g/dL (3.4-5.0); Alkaline Phosphatase 146 U/L (46-116); Anion Gap 8.7 mmol/L (3-11); BUN 26 mg/dL (7-18); Bilirubin, Total 0.5 mg/dL (0.2-1.0); CO2 26.3 mmol/L (21.0-32.0); CREATININE 2.24 mg/dL (0.55-1.02); Calcium 9.8 mg/dL (8.5-10.1); Chloride 99 mmol/L (98-107); Estimated GFR 22.01 (mL/min/1.73m2); Glucose 102 mg/dL (74-106); Potassium 4.2 mmol/L (3.5-5.1); Sodium 134 mmol/L (136-145)
[2020-05-09 22:39] VITALS: BP 103/52; PULSE 90; RESP 20; O2SAT 95
[2020-05-09 22:57] VITALS: BP 106/55; PULSE 92; RESP 17; O2SAT 696
[2020-05-09] MEDS: Ondansetron O.D.T. 4 MG TABEF, 3 TABS/BTL PO (23:02)
== END 2020-05-09 23:15 | disposition home or self-care (01) ==
PROVIDERS: Emergency Provider Emergency Medicine; PCP Family Medicine
DX: C67.9 Malignant neoplasm of bladder, unspecified (principal); G89.3 Neoplasm related pain (acute) (chronic); Z93.6 Other artificial openings of urinary tract status
CPT/HCPCS: 80053; 96374; 96375; 99284; 85025; J2405

== ENCOUNTER 2020-05-10 09:49 | Emergency (ER) | payer MEDICAID, SELFPAY ==
[2020-05-10 09:57] VITALS: BP 123/86; PULSE 104; RESP 20; TEMP 37; O2SAT 100
[2020-05-10] MEDS: Ondansetron 4 MG/2 ML VIAL IVP (10:20)
[2020-05-10] MEDS: HYDROmorphone 2 MG/ML VIAL 1 MG IVP ×2 (10:21→10:56)
[2020-05-10 10:32] LABS: Abs Immature Grans 0.18 10^3/uL (0.0-0.06); Absolute Basophil Count 0.04 10^3/uL (0.0-0.2); Absolute Eosinophil Count 0.34 10^3/uL (0.0-0.7); Basophils % 0.2; Eosinophils % 1.7; HCT 25.1 % (36.0-46.0); HGB 7.6 g/dL (11.2-15.7); Immature Grans % 0.9; Lymphocytes % 2.5; MCH 24.1 pg (27.0-33.0); MCHC 30.3 % (32.0-36.0); MCV 79.7 fL (80-95); MPV 8.5 fL (8.0-11.0); Neutrophils % 88.7; Nucleated RBC 0 %; Platelet Count 422 10^3/uL (130-400); RBC 3.15 10^6/uL (3.93-5.22)
[2020-05-10 10:37] LABS: Absolute Neutrophil Count 17.74 10^3/uL (1.2-6.7)
--- NOTE | 2020-05-10 10:41 | W.ED.GENAD ---
Discharge Plan Disposition Patient Disposition: HOME Condition: Stable Discharge Details Clinical Impression: UTI (urinary tract infection), Obstruction of nephrostomy tube Primary Care Provider: Elayne Elaine ED Provider: Meghan Song Home Meds and New Rx's Prescriptions: Continued polyethylene glycol 3350 17 gram/dose powder 17 gm PO DAILY PRN (Reason: constipation) Qty: 238 RF: 5 clonazepam 0.5 mg tablet,disintegrating 0.5 mg PO Q8H PRN (Reason: anxiety) Qty: 150 RF: 4 hydromorphone 4 mg tablet 4 mg PO Q2H MDD 10 tab PRN (Reason: pain) Qty: 150 RF: 0 Proair Digihaler 90 mcg/actuation aero powdr breath act w/sensor 2 inh inhalation Q6H Qty: 1 RF: 5 ondansetron HCl [Zofran] 4 mg tablet 4 mg PO QID PRN (Reason: nausea and vomiting) Qty: 10 RF: 0 No Action acetaminophen 650 mg suppository 650 mg MO Q6H PRN (Reason: fever, mild pain) Qty: 6 RF: 0 hyoscyamine sulfate 0.125 mg tablet,disintegrating 0.125 - 0.25 mg PO Q4H PRN (Reason: secretions) Qty: 24 RF: 0 lorazepam 1 mg tablet 1 mg PO Q4H PRN (Reason: anxiety, JEFFERSON or nausea) Qty: 6 RF: 5 haloperidol lactate 2 mg/mL concentrate 1 mg PO Q6H PRN (Reason: agitation) Qty: 15 RF: 0 morphine concentrate 100 mg/5 mL (20 mg/mL) solution 5 - 20 mg PO Q1-4H MDD 5 mL PRN (Reason: moderate to severe pain or shortness of breath) Qty: 30 RF: 0 prochlorperazine maleate 10 mg tablet 10 mg PO Q6H PRN (Reason: nausea and vomiting) Qty: 6 RF: 0 bisacodyl [Dulcolax (bisacodyl)] 10 mg suppository 10 mg MO daily PRN (Reason: constipation) Qty: 2 RF: 0 dexamethasone [Decadron] 4 mg tablet 4 mg PO DAILY Qty: 30 RF: 5 oxycodone 60 mg tablet,oral only,ext.rel.12 hr 60 mg PO Q6H MDD 4 Qty: 120 RF: 0 nystatin 100,000 unit/mL suspension 5 ml PO QID MDD hospice 7 Days Qty: 140 RF: 0 Discharge Instructions Instructions: Urinary Tract Infection in Women (ED) Additional Instructions: Please return immediately to the emergency department if you develop any new or worsening symptoms, if your condition does not improve as expected, or if you become otherwise concerned. It is extremely important that you call soon as possible to make an appointment to be seen in follow-up for this visit by your primary care doctor and urology. Referrals: Jayce Vazquez MD [ [facility] STAFF PHYSICIAN] - Elayne Elaine MD, [place] [Primary Care Provider] - Discharge Data Discharge Date/Time-TO BE ENTERED AT DEPARTURE: 05/10/20 14:00 Medical Decision Making Glo Yu is a 64 y/o woman with a h/o bladder cancer, nephrostomy tube who presented to the emergency department with nephrostomy tube obstruction, flank pain and vomiting. On exam Pt appears uncomfortable and chronically ill. Left flank with severe TTP. Nephrostomy tube site clean and dry, no erythema. Minimal amount of urine in bag. Plan for IV pain meds, zofran. Urology has been contacted and is aware of Pt, will be down to flush nephrostomy. Labs reviewed. Leukocytosis with WBC 20, hgb 7.6, hyponatremia 133, Cr 2.6. UA with possible UTI. Pt seen by urology and palliative care. Tube flushed successfully. Urology requests one time dose of abx, Pt then to be seen as outpt for further eval. Pt discussing hospice care with palliative care. She was offered admission but declines, states that she wants to go home. Pain significantly improved after meds and clearing of nephrostomy. Pt discharged to home after discussion re: RTED precautions, home care, and importance of outpt f/u. Pt d/luís with clear plan for outpt f/u. Pt verbalizes understanding of the plan and was amenable. Medical Records Medical records reviewed: Yes I reviewed the patient's medical records. Lab Data Lab results reviewed: Yes I reviewed the patient's lab results. Labs: 05/10/20 11:30 Urine - Reflex from Ua Urine Culture - Final Proteus mirabilis Laboratory Tests Range/Units 05/10/20 05/10/20 05/10/20 10:21 10:21 11:30 WBC (4.4-10.8) 10^3/uL 20.00 H RBC (3.93-5.22) 10^6/uL 3.15 L Hgb (11.2-15.7) g/dL 7.6 L Hct (36.0-46.0) % 25.1 L MCV (80-95) fL 79.7 L MCH (27.0-33.0) pg 24.1 L MCHC (32.0-36.0) % 30.3 L RDW (11.7-14.6) % 16.0 H Plt Count (130-400) 10^3/uL 422 H MPV (8.0-11.0) fL 8.5 Immature Gran % 0.9 Neutrophils % 88.7 Lymphocytes % 2.5 Monocytes % 6.0 Eosinophils % 1.7 Basophils % 0.2 Nucleated RBC % % 0 Absolute Neutrophils (1.2-6.7) 10^3/uL 17.74 H Absolute Lymphocytes (1.2-3.4) 10^3/uL 0.50 L Absolute Monocytes (0.1-0.8) 10^3/uL 1.20 H Absolute Eosinophils (0.0-0.7) 10^3/uL 0.34 Absolute Basophils (0.0-0.2) 10^3/uL 0.04 RBC Morphology See below Hypochromasia 2+ Poikilocytosis 1+ Anisocytosis 1+ Microcytosis 2+ Sodium (136-145) mmol/L 133 L Potassium (3.5-5.1) mmol/L 3.8 Chloride (98-107) mmol/L 99 Carbon Dioxide (21.0-32.0) mmol/L 24.1 Anion Gap (3-11) mmol/L 9.9 BUN (7-18) mg/dL 29 H Creatinine (0.55-1.02) mg/dL 2.63 H Estimated GFR/1.73 m2 (mL/min/1.73m2) 18.29 Glucose (74-106) mg/dL 124 H Calcium (8.5-10.1) mg/dL 9.0 Total Bilirubin (0.2-1.0) mg/dL 0.4 AST (15-37) U/L 13 L ALT (14-59) U/L 10 L Alkaline Phosphatase (46-116) U/L 127 H Total Protein (6.4-8.2) g/dL 7.0 Albumin (3.4-5.0) g/dL 2.9 L Urine Color (Yellow) [place] Urine Clarity (Clear) Turbid Urine pH Not Applicable Ur Specific Lyons (1.005-1.025) 1.015 Urine Protein (Negative) mg/dL Color interference Urine Ketones (Negative) mg/dL Color interference Urine Blood (Negative) Color interference Urine Nitrite (Negative) Color interference Urine Bilirubin (Negative) Color interference Urine Urobilinogen (Up TO 0.2) EU/dL Color interference Ur Leukocyte Esterase (Negative) Color interference Urine RBC (0-2) HPF >50 H Urine WBC (0-5) HPF >50 H Ur Epithelial Cells Not Applicable Urine Crystals Not Applicable Urine Bacteria (Negative) HPF Many Urine Mucus Not Applicable Ur Culture Indicated? Yes Urine Glucose (Negative) mg/dL Color interference HPI General Mode of arrival: ambulatory. Date/Time Provider Initiated Documentation: 05/10/20 09:58. Limitations to Documentation: no limitations. Information obtained by: patient, RN notes reviewed and old records reviewed. HPI Narrative: Glo Yu is a 64-year-old woman with a history of bladder cancer, glaucoma presenting to emergency department with flank pain. Patient has left nephrostomy tube in place. Patient reports that she woke up at 3 in the morning with left-sided flank pain and no output from the nephrostomy tube. Patient reports that pain has become more severe over time. She also began vomiting after onset of pain and has not been able to hold down fluids or medication. Patient reports that any obstruction to the nephrostomy tube, including a full nephrostomy bag causes her significant flank pain. Patient reports that she had an obstructed tube similar to this episode approximately 3 months ago with same symptoms, severe flank pain and vomiting. Denies other pain, fever, cough, SOB, diarrhea, numbness, new weakness. No dysuria. Related Data Home Medications Medication Instructions Recorded Confirmed polyethylene glycol 3350 17 17 gm PO DAILY PRN #238 gm 11/17/19 05/09/20 gram/dose oral powder clonazepam 0.5 mg disintegrating 0.5 mg PO Q8H PRN #150 tab 03/23/20 05/10/20 tablet albuterol sulfate 90 mcg/actuation 2 inh INHALATION Q6H #1 ea 03/31/20 05/10/20 breath activated powder inhaler,sensor hydromorphone 4 mg tablet 4 mg PO Q2H PRN #150 tab MDD 10 tab 04/19/20 05/10/20 ondansetron HCl [Zofran] 4 mg PO QID PRN #10 tab 05/09/20 05/10/20 acetaminophen 650 mg rectal 650 mg MO Q6H PRN #6 supp 05/12/20 05/12/20 suppository bisacodyl 10 mg rectal suppository 10 mg MO daily PRN #2 supp 05/12/20 05/12/20 haloperidol lactate 2 mg/mL oral 1 mg PO Q6H PRN #15 ml 05/12/20 05/12/20 concentrate hyoscyamine sulfate 0.125 mg 0.125 - 0.25 mg PO Q4H PRN #24 tab 05/12/20 05/12/20 disintegrating tablet lorazepam 1 mg tablet 1 mg PO Q4H PRN #6 tab 05/12/20 05/12/20 morphine concentrate 100 mg/5 mL 5 - 20 mg PO Q1-4H PRN #30 ml MDD 05/12/20 05/12/20 (20 mg/mL) oral solution 5 mL prochlorperazine maleate 10 mg 10 mg PO Q6H PRN #6 tab 05/12/20 05/12/20 tablet dexamethasone 4 mg tablet 4 mg PO DAILY #30 tab 05/19/20 05/19/20 oxycodone 60 mg tablet,crush 60 mg PO Q6H #120 tab MDD 4 05/19/20 05/19/20 resistant,extended release 12 hr nystatin 100,000 unit/mL oral 5 ml PO QID 7 Days #140 ml MDD 05/22/20 suspension hospice Previous Rx's Medication Instructions Recorded polyethylene glycol 3350 17 17 gm PO DAILY PRN #238 gm 11/17/19 gram/dose oral powder clonazepam 0.5 mg disintegrating 0.5 mg PO Q8H PRN #150 tab 03/23/20 tablet albuterol sulfate 90 mcg/actuation 2 inh INHALATION Q6H #1 ea 03/31/20 breath activated powder inhaler,sensor hydromorphone 4 mg tablet 4 mg PO Q2H PRN #150 tab MDD 10 tab 04/19/20 ondansetron HCl [Zofran] 4 mg PO QID PRN #10 tab 05/09/20 acetaminophen 650 mg rectal 650 mg MO Q6H PRN #6 supp 05/12/20 suppository bisacodyl 10 mg rectal suppository 10 mg MO daily PRN #2 supp 05/12/20 haloperidol lactate 2 mg/mL oral 1 mg PO Q6H PRN #15 ml 05/12/20 concentrate hyoscyamine sulfate 0.125 mg 0.125 - 0.25 mg PO Q4H PRN #24 tab 05/12/20 disintegrating tablet lorazepam 1 mg tablet 1 mg PO Q4H PRN #6 tab 05/12/20 morphine concentrate 100 mg/5 mL 5 - 20 mg PO Q1-4H PRN #30 ml MDD 05/12/20 (20 mg/mL) oral solution 5 mL prochlorperazine maleate 10 mg 10 mg PO Q6H PRN #6 tab 05/12/20 tablet dexamethasone 4 mg tablet 4 mg PO DAILY #30 tab 05/19/20 oxycodone 60 mg tablet,crush 60 mg PO Q6H #120 tab MDD 4 05/19/20 resistant,extended release 12 hr nystatin 100,000 unit/mL oral 5 ml PO QID 7 Days #140 ml MDD 05/22/20 suspension hospice Allergies Allergy/AdvReac Type Severity Reaction Status Date / Time naloxone Allergy Mild mouth and Verified 05/10/20 10:04 throat blisters/couldn't talk cephalexin [From Keflex] Allergy Verified 05/10/20 10:04 ciprofloxacin [From Cipro] Allergy Verified 05/10/20 10:04 General Stated Complaint: Urinary [place]: 3 Review of Systems Narrative: Constitutional: denies fevers Eyes: denies eye pain ENT: denies ear pain, dental pain, sore throat Cardiovascular: denies chest pain, edema Respiratory: denies SOB, cough GI: denies abdominal pain, diarrhea, reports vomiting : denies dysuria, reports left flank pain MSK: denies back pain, neck pain, arthralgias, myalgias Skin: denies rash Neuro: denies headaches, numbness, weakness PFSH Medical History Bladder mass Buprenorphine dependence Cancer Frequent UTI Left against medical advice Surgical History History of bladder surgery History of hysterectomy Social History Smoking/Tobacco Use Status: Current every day Tobacco Type: cigarettes Years smoked: 10 Smoking risk assessment performed?: Yes Alcohol Intake: former Drug use: Never Substance use type: does not use Do you feel safe at home: Yes Do you feel safe in your relationship?: Yes Exam Narrative Exam Narrative: Constitutional: chronically ill and uncomfortable appearing, pleasant, conversing normally HENT: head atraumatic/normocephalic/normal inspection, mucous membranes moist Eyes: conjunctiva normal, sclera normal, pupils 3mm b/l Neck: no stridor, normal ROM, trachea midline Resp: normal work of breathing, speaking in full sentences Cardio: normal rate, normal rhythm GI: pt requests abd exam deferred Back: normal inspection, no rash, nephrostomy tube site left flank clean and dry, no erythema, severe surrounding TTP Skin: warm, dry, normal color, no rash Neuro: alert, not altered, grossly non-focal, normal tone Ext: no edema Psych: normal mood, normal affect, normal behavior Course Vital Signs Vital signs: Vital Signs Temperature 37 C 05/10/20 09:57 Pulse 104 H 05/10/20 09:57 Respiratory Rate 20 05/10/20 09:57 Blood Pressure 123/86 05/10/20 09:57 Pulse Oximetry 100 05/10/20 09:57 Temperature 37 C 05/10/20 09:57 Temperature Source Skin 05/10/20 09:57 Pulse 104 H 05/10/20 09:57 Respiratory Rate 20 05/10/20 09:57 Respiratory Effort Non-Labored 05/10/20 09:57 Blood Pressure 123/86 05/10/20 09:57 Blood Pressure Position Sitting 05/10/20 09:57 Pulse Oximetry 100 05/10/20 09:57 Oxygen Delivery Method Room Air 05/10/20 09:57 Oxygen Flow Rate 0 05/10/20 09:57 Pain Level 10 05/10/20 09:57
[2020-05-10 10:45] LABS: Anisocytosis 1+; Diff Comment Diff Reviewed; Hypochromasia 2+; Microcytosis 2+; Poikilocytes 1+
[2020-05-10 10:47] LABS: ALT 10 U/L (14-59); AST 13 U/L (15-37); Albumin 2.9 g/dL (3.4-5.0); Alkaline Phosphatase 127 U/L (46-116); Anion Gap 9.9 mmol/L (3-11); BUN 29 mg/dL (7-18); Bilirubin, Total 0.4 mg/dL (0.2-1.0); CO2 24.1 mmol/L (21.0-32.0); CREATININE 2.63 mg/dL (0.55-1.02); Chloride 99 mmol/L (98-107); Estimated GFR 18.29 (mL/min/1.73m2); Glucose 124 mg/dL (74-106); Potassium 3.8 mmol/L (3.5-5.1); Sodium 133 mmol/L (136-145)
--- NOTE | 2020-05-10 11:44 | NUR.NOTE ---
Ayah Liu Np came to bedside. flushed pt lt urostomy tube. UA taken from top tube and sent to lab. pt needing pain med and possible imaging plus antibitotic per provider. will cont to monitor.:
[2020-05-10 11:52] VITALS: BP 119/57; PULSE 95; RESP 17; TEMP 37.2; O2SAT 98
[2020-05-10 11:52] LABS: Clarity Turbid (Clear); Specific Gravity 1.015 (1.005-1.025)
[2020-05-10 11:53] LABS: Bilirubin Color Interference (Negative); Blood Color Interference (Negative); Glucose Color Interference mg/dL (Negative); Ketones Color Interference mg/dL (Negative); Leukocyte Esterase Color Interference (Negative); Nitrite Color Interference (Negative); Urobilinogen Color Interference EU/dL (Up TO 0.2)
[2020-05-10 11:56] LABS: Bacteria Many HPF (Negative); RBC >50 HPF (0-2); WBC >50 HPF (0-5)
[2020-05-10 11:57] LABS: C & S Indicated? Yes
--- NOTE | 2020-05-10 12:04 | NUR.NOTE ---
Dr Moreno in at bedside for palliative care consult
[2020-05-10] MEDS: HYDROmorphone 2 MG/ML VIAL IVP (12:32)
[2020-05-10] MEDS: Normal Saline 1,000 ML 1000 ML IV (12:33)
--- NOTE | 2020-05-10 13:00 | PCNE_ITS ---
Date of service: 05/10/20 Time of Service: 13:00 History of Present Illness Narrative: I am seeing Glo for her metastatic bladder cancer. I have been caring for her for several months. Glo is worsening with her pain control, her tubes were recently plugged, her kidney function, and her weight loss. She was in the emergency room yesterday and again today because of pain control. She refused to stay yesterday. I am seeing her today so that we can do a better plan. I am also seeing her with Clarice Liu NP who along with Dr. Vazquez was able to open her nephrostomy tubes so that they were patent. Glo feels like this will help a lot in reducing her nausea. She understands that her time is nearing and and. She states that her ex- will be with her and help her through this time. She is willing to consider hospice. The IV Dilaudid helped considerably. She would like to go home for 24 hours, give her dog away, talk to her great nephew about her dying etc. she is then willing to come back to the hospital and go on a Dilaudid drip. Unfortunately I doubt that anything short of a drip would be efficacious. She also agrees to hospice. (She has agreed to hospice in the past and after several tries hospice stopped trying to meet with her) She was quite upset that she felt Clarice and I were pushing her to make decisions. She just wanted to get out of the hospital now. She also felt that she was hydrated enough and did not need to have IV fluids. Consults Consult date: 05/10/20 Requesting physician: Meghan Song Assessment and Plan Assessment and plan (1) Obstruction of nephrostomy tube: Status: Acute (2) Bladder cancer: Status: Acute (3) Physician orders for life-sustaining treatment (POLST) form indicates dre ent wish for [id number] status: Status: Acute Assessment and plan: From her labs she does have elevated white count and a probable urinary and infection. Plan is to give her some IV Bactrim to hold her over until tomorrow General plan she is in agreement to come into the hospital to [facility]. I will try to arrange a direct admit. I think then she needs to be placed on a Dilaudid drip and also given antianxiety medication. 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 In the past we have made fairly concrete plans but they often times get changed midstream. I did speak to the hospitalist group and they are willing to plan on her coming tomorrow. I will come in at 11:30 AM to help with the admission. Clarice Liu requested that a bag of fluids be given to Glo with her Bactrim. I think that that is a great idea as I think getting her more tanked up would be helpful in the long run Both Clarice and myself did speak with her about her goals of care and future She is a DNR/DNI Review of Systems Narrative: Nausea, unable to keep fluids and pills down, pelvic pain which has been pure a kidney PFSH Medical History Bladder mass Buprenorphine dependence Cancer Frequent UTI Left against medical advice Surgical History History of bladder surgery History of hysterectomy Social History Smoking/Tobacco Use Status: Current every day Tobacco Type: cigarettes Years smoked: 10 Smoking risk assessment performed?: Yes Alcohol Intake: former Drug use: Never Substance use type: does not use Do you feel safe at home: Yes Do you feel safe in your relationship?: Yes Exam Narrative Exam Narrative: Cachectic looking woman, 64 years of age. Her clothes are hanging from her due to probable weight loss. She is disheveled. She looks to be in pain. She is wearing her nephrostomy bag on the outside of her pajamas. She is speaking in 4-6 word sentences. She many times has to catch her breath because of the pain. Results Last Vital Signs Temp 99.0 F 05/10/20 11:52 Pulse 95 H 05/10/20 11:52 Resp 17 05/10/20 11:52 BP 119/57 L 05/10/20 11:52 Pulse Ox 98 05/10/20 11:52 Labs Result diagrams: 05/10/20 10:21 05/10/20 10:21 Labs: Laboratory Results - last 24 hr 05/10/20 05/10/20 05/10/20 10:21 10:21 11:30 WBC 20.00 H RBC 3.15 L Hgb 7.6 L Hct 25.1 L MCV 79.7 L MCH 24.1 L MCHC 30.3 L RDW 16.0 H Plt Count 422 H MPV 8.5 Immature Gran % 0.9 Neutrophils % 88.7 Lymphocytes % 2.5 Monocytes % 6.0 Eosinophils % 1.7 Basophils % 0.2 Nucleated RBC % 0 Absolute Neutrophils 17.74 H Absolute Lymphocytes 0.50 L Absolute Monocytes 1.20 H Absolute Eosinophils 0.34 Absolute Basophils 0.04 RBC Morphology See below Hypochromasia 2+ Poikilocytosis 1+ Anisocytosis 1+ Microcytosis 2+ Sodium 133 L Potassium 3.8 Chloride 99 Carbon Dioxide 24.1 Anion Gap 9.9 BUN 29 H Creatinine 2.63 H Estimated GFR/1.73 m2 18.29 Glucose 124 H Calcium 9.0 Total Bilirubin 0.4 AST 13 L ALT 10 L Alkaline Phosphatase 127 H Total Protein 7.0 Albumin 2.9 L Urine Color [place] Urine Clarity Turbid Urine pH Not Applicable Ur Specific [place] 1.015 Urine Protein Color interference Urine Ketones Color interference Urine Blood Color interference Urine Nitrite Color interference Urine Bilirubin Color interference Urine Urobilinogen Color interference Ur Leukocyte Esterase Color interference Urine RBC >50 H Urine WBC >50 H Ur Epithelial Cells Not Applicable Urine Crystals Not Applicable Urine Bacteria Many Urine Mucus Not Applicable Ur Culture Indicated? Yes Urine Glucose Color interference
--- NOTE | 2020-05-10 15:46 | UCONE_ITS ---
Date of service: 05/10/20 Time of Service: 11:00 Assessment and Plan Assessment and plan (1) Obstruction of nephrostomy tube: Status: Acute Assessment and plan: See procedure note for clearing obstruction of NT. DSG change also done during this time. Note holding stitch was not intact. She has a NT with a coil that should keep NT in place. Please see palliative care note for further information on patient care. It was recommended that patient have a liter of fluid and ABX treatment for a possible kidney infection. Will see patient on an outpatient basis as needed. Dictation was done by [employer] voice recognition. Errors may be present within the note. (2) Bladder cancer: Status: Acute History of Present Illness History of Present Illness Chief Complaint: NT not draining Narrative: Patient reports that she is having increased left flank pain related to her nephrostomy tube not draining. She states approximately 3 AM it stopped draining completely. He has had increased pain and nausea related to this matter. She has terminal bladder cancer. And is being seen by palliative care and considering hospice. Consults Consult date: 05/10/20 Requesting physician: Meghan Song Review of Systems Narrative: Nausea, unable to keep fluids and pills down, pelvic and left flank pain PFSH Medical History Bladder mass Buprenorphine dependence Cancer Frequent UTI Left against medical advice Surgical History History of bladder surgery History of hysterectomy Social History Smoking/Tobacco Use Status: Current every day Tobacco Type: cigarettes Years smoked: 10 Smoking risk assessment performed?: Yes Alcohol Intake: former Drug use: Never Substance use type: does not use Do you feel safe at home: Yes Do you feel safe in your relationship?: Yes Exam Const General: cooperative and in distress Nutritional Appearance: underweight Orientation: alert, awake and oriented x3 Eyes Conjunctivae: conjunctivae normal Resp Effort & Inspection: able to speak in complete sentences GI Palpation: firm and tender General: CVA tenderness on the left; not on the right Results Last Vital Signs Temp 99.0 F 05/10/20 11:52 Pulse 95 H 05/10/20 11:52 Resp 17 05/10/20 11:52 BP 119/57 L 05/10/20 11:52 Pulse Ox 98 05/10/20 11:52 Labs Result diagrams: 05/10/20 10:21 05/10/20 10:21 Labs: Laboratory Results - last 24 hr 05/10/20 05/10/20 05/10/20 10:21 10:21 11:30 WBC 20.00 H RBC 3.15 L Hgb 7.6 L Hct 25.1 L MCV 79.7 L MCH 24.1 L MCHC 30.3 L RDW 16.0 H Plt Count 422 H MPV 8.5 Immature Gran % 0.9 Neutrophils % 88.7 Lymphocytes % 2.5 Monocytes % 6.0 Eosinophils % 1.7 Basophils % 0.2 Nucleated RBC % 0 Absolute Neutrophils 17.74 H Absolute Lymphocytes 0.50 L Absolute Monocytes 1.20 H Absolute Eosinophils 0.34 Absolute Basophils 0.04 RBC Morphology See below Hypochromasia 2+ Poikilocytosis 1+ Anisocytosis 1+ Microcytosis 2+ Sodium 133 L Potassium 3.8 Chloride 99 Carbon Dioxide 24.1 Anion Gap 9.9 BUN 29 H Creatinine 2.63 H Estimated GFR/1.73 m2 18.29 Glucose 124 H Calcium 9.0 Total Bilirubin 0.4 AST 13 L ALT 10 L Alkaline Phosphatase 127 H Total Protein 7.0 Albumin 2.9 L Urine Color [place] Urine Clarity Turbid Urine pH Not Applicable Ur Specific [place] 1.015 Urine Protein Color interference Urine Ketones Color interference Urine Blood Color interference Urine Nitrite Color interference Urine Bilirubin Color interference Urine Urobilinogen Color interference Ur Leukocyte Esterase Color interference Urine RBC >50 H Urine WBC >50 H Ur Epithelial Cells Not Applicable Urine Crystals Not Applicable Urine Bacteria Many Urine Mucus Not Applicable Ur Culture Indicated? Yes Urine Glucose Color interference Procedures Other Procedure Description/Findings: Left NT occluded. Urinary drainage noted. NT disconnected from collecting bag and flushed. No resistance noted. Dark urine with debris flowed freely. Urine sample taken directly from NT.
== END 2020-05-10 14:00 | disposition home or self-care (01) ==
PROVIDERS: Emergency Provider Student in an Organized Health Care Education/Training Program; PCP Family Medicine
DX: T83.092A Other mechanical complication of nephrostomy catheter, initial encounter (principal); C67.9 Malignant neoplasm of bladder, unspecified; N39.0 Urinary tract infection, site not specified; B96.4 Proteus (mirabilis) (morganii) as the cause of diseases classified elsewhere
CPT/HCPCS: 80053; 87077; 96361; 96365; 96375; 96376; 99252; 99254; 99284; 81003; 81015; 85025; 87086; 87186; J2405